=== PATIENT | female | born 1950 | race Caucasian/White ===

== ENCOUNTER 2017-11-11 12:57 | Inpatient (IN) | payer BC, OTHER ==
[~2017-11-11] VITALS: Ht 152.4 cm; Wt 92.0 kg
[~2017-11-11 12:57] MED LIST: ASPI325T39 PO; CHOL100010 PO; CINN500T PO; CLX40 PO; FURO-85 PO; GLC/500 PO; INSUINJ4 SC; LEVAAER2 INH; LISI-729 PO; MELATAB2 PO; MULT-1018 PO; MULT-845 PO; OMEG5CAP PO; ORLI60CA2 PO; PSYL48.59 PO; REPA2TAB12 PO; SIMV20TA2 PO; SNG10 PO; SNQ/25 PO; SYMIN160 INH; TRAZ100T29 PO
[2017-11-11] MEDS ORDERED: LIRA18IN INJ (13:44)
--- NOTE | 2017-11-11 14:30 | DIAGNOSTIC IMAGING REPORT ---
ADDENDUM Subtle cortical lucency involving the lateral aspect of the proximal diaphyseal right femur seen only on the AP view suggests acute nondisplaced fracture. This is better seen on comparison CT of same day. Electronically signed by: Andrew Carey M.D. 11/11/2017 5:57 PM Dictated Date/Time: 11/11/2017 5:56 PM ORIGINAL REPORT PELVIS 1 OR 2 VIEW ROUTINE, R HIP UNILATERAL 2 VIEWS, R FEMUR 2 VIEWS ROUTINE HISTORY: 67 years-old Female right hip/femur pain, fall, eval fx acute pelvis, right hip and right femur pain status post fall COMPARISON: Pelvis radiograph 04/29/2014 TECHNIQUE: AP view of the pelvis with 2 views the right hip and 2 views of the right femur FINDINGS: PELVIS: Bilateral hip arthroplasties are present without evidence of hardware fracture or complication. The bones appear moderately demineralized. Vascular calcifications of the pelvis suggest phleboliths. Degenerative changes are seen within the lower lumbar spine. No acute fracture or subluxation identified. RIGHT HIP: Chronic cortical thickening is noted involving the proximal right femur. 3 mm lucency is noted lateral to the proximal aspect of the right femoral stem seen on the frontal view which appears new from prior study. No acute fracture or subluxation. RIGHT FEMUR: No acute fracture or subluxation. Right knee arthroplasty in satisfactory alignment. IMPRESSION: 1. No acute fracture or subluxation. 2. Bilateral hip and right knee arthroplasties. 3. 3 mm lucency lateral to the proximal right femoral stem is suspicious for possible hardware loosening, new from prior study. 4. Moderate bone demineralization. The above report was generated using voice recognition software. It may contain grammatical, syntax or spelling errors. Electronically signed by: Andrew Carey M.D. 11/11/2017 2:29 PM Dictated Date/Time: 11/11/2017 2:23 PM
--- NOTE | 2017-11-11 15:28 | EMERGENCY ROOM VISIT NOTE ---
History First contact with patient: 13:18 Chief Complaint: HIP PAIN Stated Complaint: FELL LAST NIGHT/HIP PAIN History of Present Illness The patient is a 67 year old female who presents to the Emergency Room with complaints of right hip and thigh pain after falling last night. She states she was walking quickly down her hallway and tripped, falling onto her right side. She denies hitting her head or loss of consciousness, denies any other injuries from the fall. She has been using her walker to get around because she is unable to bear weight on the leg due to severe pain. She reports having right hip surgery approximately [address] Zuñiga, states it was broken in several pieces and "they had to piece it back together with hardware. " She denies any numbness or tingling, denies headaches, chest pain, shortness of breath, abdominal pain, back pain, dysuria or hematuria, or rash. Review of Systems A complete 10 point review of systems was reviewed with the patient with pertinent positives and negatives as per history of present illness. All else were negative. Past Medical/Surgical History Medical Problems: (1) Fall (2) Right hip pain Social History Smoking Status: Never Smoker Current/Historical Medications Scheduled Albuterol Sulf (Proventil 0.083% 2.5MG/3ML), 2.5 MG INH QID Budesonide/Formoterol Fumarate (Symbicort 160/4.5 Inhaler ), 2 PUFFS INH BID Cinnamon (Cinnamon), 1 TAB PO BID Citalopram (Citalopram Hydrobromide), 1 TAB PO QAM Doxepin (Sinequan), 25 MG PO HS Furosemide (Lasix), 20 MG PO BID Hydralazine Hcl (Apresoline), 25 MG PO TID Insulin Glargine (Lantus Solostar Pen), 42 UNITS SC HS Liraglutide (Victoza), 3 ML INJ QAM Lisinopril (Zestril), 2.5 MG PO HS Melatonin (Melatonin Maximum Strengt), 10 MG PO HS Montelukast (Singulair *), 10 MG PO HS Multiple Vitamins W/ Minerals (Centrum Silver Adult 50+), 1 TAB PO QAM Multiple Vitamins W/ Minerals (Hair Skin and Nails Formu), 1 TAB PO BID [place]-3 Fatty Acids (Fish Oil 1200 mg), 1 CAP PO QAM Orlistat (Kasi), 60 MG PO BID Simvastatin (Zocor), 20 MG PO HS Trazodone Hcl (Trazodone), 100 MG PO HS Scheduled PRN Hydroxyzine HCl (Hydroxyzine HCl), 25 MG PO TID PRN for Itching Levalbuterol (Xopenex Hfa), 2 PUFFS INH HS PRN for BREATHING Tramadol (Ultram), 50 MG PO Q6 PRN for Pain Allergies Reviewed in chart. Physical Exam Vital Signs Date Time Temp Pulse Resp B/P (MAP) Pulse Ox O2 Delivery O2 Flow Rate FiO2 11/11/17 18:26 75 18 118/55 99 Room Air 11/11/17 16:16 83 18 127/53 97 Room Air 11/11/17 13:13 36.8 78 18 146/73 98 Room Air Physical Exam CONSTITUTIONAL: Pleasant and cooperative. No acute distress, but appears in pain during exam. Well appearing and well nourished. HEENT: Normocephalic, atraumatic. Pupils equal, round and reactive to light, EOMI. TMs normal. Pharynx normal. NECK: Supple, full active range of motion without discomfort. RESPIRATORY: Clear to auscultation bilaterally with no wheezing, crackles, rhonchi or stridor. Equal expansion bilaterally. CARDIOVASCULAR: Regular rate and rhythm with no murmurs, rubs or gallops. Normal peripheral perfusion. No edema. GASTROINTESTINAL: Soft, nontender, nondistended. No palpable masses or HSM. Bowel sounds present in all quadrants. MUSCULOSKELETAL: There is tenderness to palpation of the proximal lateral right thigh, as well as increased pain with flexion, internal and external rotation of the hip joint. No ecchymosis or swelling noted on exam. Active range of motion in the right leg is severely limited secondary to pain. There is no pain with range of motion of the right knee or ankle. INTEGUMENTARY: No rash or other significant dermatologic conditions noted. NEUROLOGIC: Alert and oriented X 4 with normal affect. No focal neurologic deficits noted. Normal strength and sensation in all 4 extremities Medical Decision & Procedures ER Provider Diagnostic Interpretation: PELVIS 1 OR 2 VIEW ROUTINE, R HIP UNILATERAL 2 VIEWS, R FEMUR 2 VIEWS ROUTINE HISTORY: 67 years-old Female right hip/femur pain, fall, eval fx acute pelvis, right hip and right femur pain status post fall COMPARISON: Pelvis radiograph 04/29/2014 TECHNIQUE: AP view of the pelvis with 2 views the right hip and 2 views of the right femur FINDINGS: PELVIS: Bilateral hip arthroplasties are present without evidence of hardware fracture or complication. The bones appear moderately demineralized. Vascular calcifications of the pelvis suggest phleboliths. Degenerative changes are seen within the lower lumbar spine. No acute fracture or subluxation identified. RIGHT HIP: Chronic cortical thickening is noted involving the proximal right femur. 3 mm lucency is noted lateral to the proximal aspect of the right femoral stem seen on the frontal view which appears new from prior study. No acute fracture or subluxation. RIGHT FEMUR: No acute fracture or subluxation. Right knee arthroplasty in satisfactory alignment. IMPRESSION: 1. No acute fracture or subluxation. 2. Bilateral hip and right knee arthroplasties. 3. 3 mm lucency lateral to the proximal right femoral stem is suspicious for possible hardware loosening, new from prior study. 4. Moderate bone demineralization. Laboratory Results 11/11/17 16:35 Red Blood Count 3.87, Mean Corpuscular Volume 85.0, Mean Corpuscular Hemoglobin 28.4, Mean Corpuscular Hemoglobin Concent 33.4, Mean Platelet Volume 8.8, Neutrophils (%) (Auto) 64.3, Lymphocytes (%) (Auto) 25.4, Monocytes (%) (Auto) 8.6, Eosinophils (%) (Auto) 1.4, Basophils (%) (Auto) 0.1, Neutrophils # (Auto) 7.11, Lymphocytes # (Auto) 2.80, Monocytes # (Auto) 0.95, Eosinophils # (Auto) 0.15, Basophils # (Auto) 0.01 11/11/17 16:35 Test 11/11/17 16:35 White Blood Count 11.04 K/uL (4.8-10.8) Red Blood Count 3.87 M/uL (4.2-5.4) Hemoglobin 11.0 g/dL (12.0-16.0) Hematocrit 32.9 % (37-47) Mean Corpuscular Volume 85.0 fL (80-100) Mean Corpuscular Hemoglobin 28.4 pg (25-34) Mean Corpuscular Hemoglobin Concent 33.4 g/dl (32-36) Platelet Count 268 K/uL (130-400) Mean Platelet Volume 8.8 fL (7.4-10.4) Neutrophils (%) (Auto) 64.3 % Lymphocytes (%) (Auto) 25.4 % Monocytes (%) (Auto) 8.6 % Eosinophils (%) (Auto) 1.4 % Basophils (%) (Auto) 0.1 % Neutrophils # (Auto) 7.11 K/uL (1.4-6.5) Lymphocytes # (Auto) 2.80 K/uL (1.2-3.4) Monocytes # (Auto) 0.95 K/uL (0.11-0.59) Eosinophils # (Auto) 0.15 K/uL (0-0.5) Basophils # (Auto) 0.01 K/uL (0-0.2) RDW Standard Deviation 44.2 fL (36.4-46.3) RDW Coefficient of Variation 14.3 % (11.5-14.5) Immature Granulocyte % (Auto) 0.2 % Immature Granulocyte # (Auto) 0.02 K/uL (0.00-0.02) Prothrombin Time 10.5 SECONDS (9.0-12.0) Prothromb Time International Ratio 1.0 (0.9-1.1) Activated Partial Thromboplast Time 28.0 SECONDS (21.0-31.0) Partial Thromboplastin Ratio 1.1 Anion Gap 10.0 mmol/L (3-11) Est Creatinine Clear Calc Drug Dose 33.6 ml/min Estimated GFR () 36.3 Estimated GFR (Non- 31.3 BUN/Creatinine Ratio 23.7 (10-20) Calcium Level 9.0 mg/dl (8.5-10.1) Medical Decision CC: Patient presenting with complaint of right hip/thigh pain after a fall Differential Diagnosis: Includes, but not limited to hip fracture/dislocation, femur fracture, hardware disruption, contusion, hematoma, among others. Medication Reconciliation: I attest that I have personally reviewed the patient' s current medication list. Initial vital signs review: I reviewed the patient's vital signs and interpret them as follows: T: Afebrile; BP: Hypertensive; HR: Within normal limits; RR : Within normal limits; Pulse Ox: Within normal limits on room air. Blood pressure screening: The patient was found to have an elevated blood pressure, this was felt to be situational due to pain. Summary: Patient was evaluated at bedside, history and physical exam performed. Patient is alert and oriented, no acute distress but appears uncomfortable throughout the exam, laying in the stretcher. There is point tenderness over the lateral right mid-proximal thigh to palpation. There is no limb shortening or abnormal rotation to suggest a hip dislocation on exam. Orders were placed at bedside for x-ray imaging of the pelvis, right hip, and right femur to evaluate for fracture/dislocation. The patient was offered something for pain, she declines anything at this time. The patient was discussed with Dr. Christianson, who agrees with my assessment and plan. X-ray imaging is read as no acute fracture by radiology, however on my read there appears to be a cortical disruption on the AP view that correlates with patient's area of tenderness on exam, concerning for a femur fracture. I spoke with Dr. Ritter, orthopedic surgery, who agrees with my concern for femur fracture on x-ray. He requested CT of the extremity for further evaluation. Hospitalist to be called for the admission, as this will most likely require surgery. Pre-op labs, CXR, and EKG also ordered. Patient reassessed multiple times throughout ED stay, she remains comfortable and declining pain medication. I updated her on all results. Patient stable at time of admission. Impression Primary Impression: Femur fracture, right Additional Impression: Fall Departure Information Dispostion Admitted as an inpatient Condition FAIR Prescriptions Tramadol (Ultram) 50 Mg Tab 50 MG PO Q6 Y for Pain, #30 TAB Prov: Junito Weir MD 11/11/17 Albuterol Sulf (PROVENTIL 0.083% 2.5MG/3ML) 2.5 Mg/3 Ml Nebu 2.5 MG INH QID for SOB/Wheezing, #1 EA Prov: Junito Weir MD 11/11/17 Hydroxyzine HCl (Hydroxyzine HCl) 25 Mg Tab 25 MG PO TID Y for Itching, #30 Prov: Junito Weir MD 11/11/17 Hydralazine Hcl (APRESOLINE) 25 Mg Tab 25 MG PO TID, #30 TAB Prov: Junito Weir MD 11/11/17 Referrals Elgin Curran III, M.D. (PCP) Patient Instructions My [facility] Problem Qualifiers Primary Impression: Femur fracture, right Encounter type: initial encounter Femur location: shaft Fracture type: closed Fracture morphology: other fracture Qualified Codes: S72.391A - Other fracture of shaft of right femur, initial encounter for closed fracture Additional Impression: Fall Encounter type: initial encounter Qualified Codes: W19.XXXA - Unspecified fall, initial encounter
[2017-11-11 16:50] LABS: BASO % 0.1 %; BASO ABS # 0.01 K/uL (0-0.2); EOS % 1.4 %; EOS ABS # 0.15 K/uL (0-0.5); HEMATOCRIT 32.9 % (37-47); IG# 0.02 K/uL (0.00-0.02); LYMPH % 25.4 %; MEAN CORPUSCULAR HEMOGLOBIN 28.4 pg (25-34); MEAN CORPUSCULAR HGB CONC 33.4 g/dl (32-36); MEAN PLATELET VOLUME 8.8 fL (7.4-10.4); MONO % 8.6 %; MONO ABS # 0.95 K/uL (0.11-0.59); NEUT % 64.3 %; NEUT ABS # 7.11 K/uL (1.4-6.5); PLATELET COUNT 268 K/uL (130-400); RED CELL DISTRIBUTION WIDTH CV 14.3 % (11.5-14.5); RED CELL DISTRIBUTION WIDTH SD 44.2 fL (36.4-46.3); WHITE BLOOD COUNT 11.04 K/uL (4.8-10.8)
--- NOTE | 2017-11-11 17:01 | DIAGNOSTIC IMAGING REPORT ---
CHEST ONE VIEW PORTABLE HISTORY: 67 years-old Female pre-op eval preoperative exam. No acute chest complaints COMPARISON: Chest radiographs 03/29/2017 TECHNIQUE: Portable AP view of the chest FINDINGS: Calcifications of the tracheobronchial tree again noted. Cardiac silhouette is again enlarged, unchanged. No pneumothorax, pleural effusion, focal airspace consolidation or overt pulmonary edema. Severe degenerative changes of the bilateral shoulders redemonstrated with probable multiple loose bodies of the left axillary recess measuring up to 5 mm. Cholecystectomy clips noted. Levoscoliosis of the lumbar spine partially imaged. IMPRESSION: No acute process. The above report was generated using voice recognition software. It may contain grammatical, syntax or spelling errors. Electronically signed by: Andrew Carey M.D. 11/11/2017 4:59 PM Dictated Date/Time: 11/11/2017 4:58 PM
[2017-11-11 17:06] LABS: CREATININE 1.69 mg/dl (0.60-1.20)
[2017-11-11] MEDS ORDERED: ALUMINUM/MAGNESIUM/SIMETH (MAALOX MAX) 30 ML UDC PO PRN (17:45)
[2017-11-11] MEDS ORDERED: ONDANSETRON INJ 2 MG/ML 2 ML VIAL IV PRN (17:45)
[2017-11-11] MEDS ORDERED: LEValbuterol HFA 15GM INHALER INH PRN (17:45)
[2017-11-11] MEDS ORDERED: ACETAMINOPHEN 325 MG TAB PO PRN (17:45)
[2017-11-11] MEDS ORDERED: APR25 PO (17:49)
[2017-11-11] MEDS ORDERED: TRAM-10 PO (17:49)
[2017-11-11] MEDS ORDERED: ATR25 PO (17:49)
[2017-11-11] MEDS ORDERED: ALBINS/ INH (17:49)
--- NOTE | 2017-11-11 17:57 | DIAGNOSTIC IMAGING REPORT ---
R LOWER EXTREMITY WITHOUT HISTORY: 67 years-old Female left femur, eval extent of fracture acute right leg pain status post fall. COMPARISON: Right femur and right hip radiographs of same day TECHNIQUE: Multiple axial CT images of the right thigh were obtained without contrast. A dose lowering technique was used consistent with the principals of GUANACO. FINDINGS: The bones appear to be mildly demineralized. Degenerative changes are seen within the pubic symphysis. No pelvic ring fracture identified. There is an acute obliquely oriented fracture involving the proximal metadiaphyseal portion of the right femur nicely seen on images 40 and 41 of series 300. There is 6 mm anterior displacement of the distal shaft. Fracture line extends proximally into the intertrochanteric region as seen on image 107 series 3 and extends distally approximately 10 cm. Mild periprosthetic lucencies seen laterally adjacent to the femoral stem, better seen on comparison radiographs. Right knee arthroplasty. No evidence of right knee and right hip malalignment. Mild subcutaneous edema about the right thigh. No large intramuscular hematoma. Peripheral vascular disease. No acute intrapelvic abnormality identified. IMPRESSION: 1. Acute minimally displaced oblique fracture involves the proximal metadiaphyseal femur. Fracture extends from the intratrochanteric region extending distally approximately 10 cm. 2. Moderate bone demineralization without additional acute fracture or subluxation. 2. No evidence of right hip dislocation. 3. Right knee arthroplasty without malalignment. 4. Mild soft tissue swelling about the right thigh. No large intramuscular hematoma. The above report was generated using voice recognition software. It may contain grammatical, syntax or spelling errors. Electronically signed by: Andrew Carey M.D. 11/11/2017 5:55 PM Dictated Date/Time: 11/11/2017 5:46 PM
[2017-11-11] MEDS ORDERED: TRAMADOL HCL 50 MG TAB PO PRN (18:00)
[2017-11-11] MEDS ORDERED: hydrOXYzine HCL 25 MG TAB PO PRN (18:00)
--- NOTE | 2017-11-11 18:29 | EMERGENCY ROOM VISIT NOTE ---
ED Visit Note First contact with patient: 13:18 I have personally evaluated and examined this patient. I agree with assessment and plan of Andra Reyes NP. Right thigh pain s/p fall and imaging concerning for fracture of periprosthetic cortical bone.
--- NOTE | 2017-11-11 18:34 | Orthopedic Consultation ---
Orthopedic Consultation Date of Consultation: Nov 11, 2017. Attending Physician: Reason for Consultation: Right hip and thigh pain. History of Present Illness Ms Cardenas is a 67-year-old female who has a previous history of a right hip implant to now has right hip and thigh pain after ground-level fall last night. She is unsure exactly what happened, but thinks that she "tripped over her own feet". She denies any loss of consciousness or syncope. She fell directly onto her right hip. She did not feel a pop or crack, but did have immediate pain and inability to bear weight. She has been unable to put any weight on her right leg since the fall last night. Due to her persistent pain, she eventually presented to the emergency department today. She has a long history of joint replacements. She says that she only had 1 surgery on her right hip in the past. She says that she had a significant hip fracture, and had a hip hemiarthroplasty prosthesis placed for this by Dr. Zuñiga approximately 10 years ago. She denies any problems with this implant before her fall yesterday. She denies any pain in the hip or any problems with her incision, such as erythema or swelling. She has also had a right total knee arthroplasty by Dr. Wilkins many years ago. She had a left total hip arthroplasty by Dr. Chen approximately 4 years ago, and what sounds like a left proximal humerus fracture ORIF by Dr. Chen many years ago. Social History Smoking Status: Never Smoker Allergies Coded Allergies: Adhesives (Verified Allergy, Unknown, BLISTERS WITH SOME TAPE, 11/11/17) Penicillins (Verified Allergy, Unknown, redness,swelling, 11/11/17) Propoxyphene (Verified Adverse Reaction, Unknown, LIGHT HEADED AND DIZZY, NAUSEA, 11/11/17) Replaces DARVOCET-N 10 Home Medications Scheduled Albuterol Sulf (Proventil 0.083% 2.5MG/3ML), 2.5 MG INH QID Budesonide/Formoterol Fumarate (Symbicort 160/4.5 Inhaler ), 2 PUFFS INH BID Cinnamon (Cinnamon), 1 TAB PO BID Citalopram (Citalopram Hydrobromide), 1 TAB PO QAM Doxepin (Sinequan), 25 MG PO HS Furosemide (Lasix), 20 MG PO BID Hydralazine Hcl (Apresoline), 25 MG PO TID Insulin Glargine (Lantus Solostar Pen), 42 UNITS SC HS Liraglutide (Victoza), 3 ML INJ QAM Lisinopril (Zestril), 2.5 MG PO HS Melatonin (Melatonin Maximum Strengt), 10 MG PO HS Montelukast (Singulair *), 10 MG PO HS Multiple Vitamins W/ Minerals (Centrum Silver Adult 50+), 1 TAB PO QAM Multiple Vitamins W/ Minerals (Hair Skin and Nails Formu), 1 TAB PO BID [place]-3 Fatty Acids (Fish Oil 1200 mg), 1 CAP PO QAM Orlistat (Kasi), 60 MG PO BID Simvastatin (Zocor), 20 MG PO HS Trazodone Hcl (Trazodone), 100 MG PO HS Scheduled PRN Hydroxyzine HCl (Hydroxyzine HCl), 25 MG PO TID PRN for Itching Levalbuterol (Xopenex Hfa), 2 PUFFS INH HS PRN for BREATHING Tramadol (Ultram), 50 MG PO Q6 PRN for Pain Current Inpatient Medications Current Inpatient Medications Medications (Trade) Dose Ordered Sig/Elba Route Start Time Stop Time Status Last Admin Dose Admin Heparin Sodium (Porcine) (Heparin Sq 5000 Unit/0.5ml) 5,000 unit Q8H SQ 11/11/17 17:45 12/11/17 17:44 UNV Acetaminophen (Tylenol Tab) 650 mg Q4H PRN PO 11/11/17 17:45 12/11/17 17:44 UNV Al Hydrox/Mg Hydrox/Simethicone (Maalox Max Susp) 15 ml Q4H PRN PO 11/11/17 17:45 12/11/17 17:44 UNV Polyethylene (Miralax Powder Packet) 17 gm DAILY PRN PO 11/11/17 17:45 12/11/17 17:44 UNV Ondansetron HCl (Zofran Inj) 4 mg Q6H PRN IV 11/11/17 17:45 12/11/17 17:44 UNV Budesonide/ Formoterol Fumarate (Symbicort 160/ 4.5 Inh) 2 puffs BID INH 11/11/17 21:00 12/11/17 20:59 UNV Citalopram Hydrobromide (celeXA TAB) 40 mg QAM PO 11/12/17 09:00 12/12/17 08:59 UNV Doxepin HCl (Sinequan Cap) 25 mg HS PO 11/11/17 21:00 12/11/17 20:59 UNV Furosemide (Lasix Tab) 20 mg BID PO 11/11/17 21:00 12/11/17 20:59 UNV Insulin Glargine (Lantus Solostar Pen) 42 units HS SC 11/11/17 21:00 12/11/17 20:59 UNV Levalbuterol (Xopenex Hfa Inhaler) 2 puffs HS PRN INH 11/11/17 17:45 12/11/17 17:44 UNV Lisinopril (Zestril Tab) 2.5 mg HS PO 11/11/17 21:00 12/11/17 20:59 UNV Montelukast Sodium (Singulair Tab) 10 mg HS PO 11/11/17 21:00 12/11/17 20:59 UNV Simvastatin (Zocor Tab) 20 mg HS PO 11/11/17 21:00 12/11/17 20:59 UNV Trazodone HCl (Desyrel Tab) 100 mg HS PO 11/11/17 21:00 12/11/17 20:59 UNV Insulin Aspart (novoLOG ASPART) SLIDING SCALE G... ACHS SC 11/11/17 21:00 12/11/17 20:59 UNV Oxycodone/ Acetaminophen (Percocet 5-325mg Tab) 1 tab Q4H PRN PO 11/11/17 17:45 11/25/17 17:44 UNV Albuterol Sulfate (Ventolin 0.083% 2.5MG/3ML Neb) 2.5 mg QID INH 11/11/17 21:00 12/11/17 20:59 UNV Hydralazine HCl (Apresoline Tab) 25 mg TID PO 11/11/17 21:00 12/11/17 20:59 UNV Hydroxyzine HCl (Vistaril Tab) 25 mg TID PRN PO 11/11/17 18:00 12/11/17 17:59 UNV Multivitamins/ Minerals (Multivitamin W/ Minerals Tab) 1 tab QAM PO 11/12/17 09:00 12/12/17 08:59 UNV Tramadol HCl (Ultram Tab) 50 mg Q6 PRN PO 11/11/17 18:00 12/11/17 17:59 UNV Physical Exam Date Time Temp Pulse Resp B/P (MAP) Pulse Ox O2 Delivery O2 Flow Rate FiO2 11/11/17 16:16 83 18 127/53 97 Room Air 11/11/17 13:13 36.8 78 18 146/73 98 Room Air Extremity Exam: Right leg: No gross deformity by inspection. No skin erythema or swelling. She has a well-healed, extensile lateral hip incision without evidence of infection. She also has a anterior right total knee incision without evidence of infection. Skin is intact without any lacerations or abrasions over the hip. Range of motion and strength testing in the hip is limited due to pain. She has intact toe and ankle dorsiflexion and plantarflexion with 5 out of 5 strength. She has intact motor and sensory function in the tibial and peroneal nerve distribution. Foot is warm and well perfused. General Appearance: no apparent distress Head: normocephalic, atraumatic Skin: normal color, warm/dry Laboratory Results Last 24 Hours Test 11/11/17 16:35 White Blood Count 11.04 K/uL Red Blood Count 3.87 M/uL Hemoglobin 11.0 g/dL Hematocrit 32.9 % Mean Corpuscular Volume 85.0 fL Mean Corpuscular Hemoglobin 28.4 pg Mean Corpuscular Hemoglobin Concent 33.4 g/dl Platelet Count 268 K/uL Mean Platelet Volume 8.8 fL Neutrophils (%) (Auto) 64.3 % Lymphocytes (%) (Auto) 25.4 % Monocytes (%) (Auto) 8.6 % Eosinophils (%) (Auto) 1.4 % Basophils (%) (Auto) 0.1 % Neutrophils # (Auto) 7.11 K/uL Lymphocytes # (Auto) 2.80 K/uL Monocytes # (Auto) 0.95 K/uL Eosinophils # (Auto) 0.15 K/uL Basophils # (Auto) 0.01 K/uL RDW Standard Deviation 44.2 fL RDW Coefficient of Variation 14.3 % Immature Granulocyte % (Auto) 0.2 % Immature Granulocyte # (Auto) 0.02 K/uL Prothrombin Time 10.5 SECONDS Prothromb Time International Ratio 1.0 Activated Partial Thromboplast Time 28.0 SECONDS Partial Thromboplastin Ratio 1.1 Sodium Level 137 mmol/L Potassium Level 4.0 mmol/L Chloride Level 101 mmol/L Carbon Dioxide Level 26 mmol/L Anion Gap 10.0 mmol/L Blood Urea Nitrogen 40 mg/dl Creatinine 1.69 mg/dl Est Creatinine Clear Calc Drug Dose 33.6 ml/min Estimated GFR () 36.3 Estimated GFR (Non- 31.3 BUN/Creatinine Ratio 23.7 Random Glucose 97 mg/dl Calcium Level 9.0 mg/dl Radiology: Right hip and femur x-rays were reviewed. They show a long-stem, calcar- replacing bipolar hip hemiarthroplasty. There is a visible fracture line on the lateral cortex of the femur. There is some lucency around the stem proximally, but no obvious lucency around the distal stem or obvious extension of the fracture down towards or past the distal stem of the femoral implant. Also noted is a right total knee arthroplasty. CT scan of the right femur from hip to knee was also reviewed. They confirms that she does have an oblique periprosthetic fracture around the femoral stem. The fracture line appears to end approximately 9 cm proximal to the distal tip of the femoral stem. Assessment & Plan (1) Femur fracture, right Assessment & Plan: She has a right hip [place] B periprosthetic femur fracture in the setting of a long-stem calcar-replacing bipolar hip hemiarthroplasty. Based on her imaging so far, I cannot tell for sure whether the implant is stable. She will need surgical intervention for this, either an ORIF versus revision hip arthroplasty. I will discuss her case with the [facility] team, and they should be able to perform her surgery in the next day or 2 based on surgeon availability. We will place her nothing by mouth after midnight tonight in case she can go to OR tomorrow. Problem Qualifiers (1) Femur fracture, right: Encounter type: initial encounter Femur location: shaft Fracture type: closed Fracture morphology: oblique Fracture alignment: displaced Qualified Codes: S72.331A - Displaced oblique fracture of shaft of right femur , initial encounter for closed fracture
[2017-11-11 19:48] VITALS: BP 147/63; PULSE 75; TEMP 36.8; O2SAT 98; BMI 39.6
--- NOTE | 2017-11-11 20:35 | HISTORY & PHYSICAL EXAMINATION ---
DATE OF ADMISSION: 11/11/2017 CHIEF COMPLAINT: Status post fall and right hip pain. HISTORY OF PRESENT ILLNESS: A 67-year-old female with past medical history significant for diabetes, hyperlipidemia, chronic kidney disease stage III, hypertension, generalized arthritis, moderate persistent asthma, obesity, history of hip replacement, chronic rhinitis, status post fall last night. The patient says she was walking in the hallway hurrying up to go to her and she tripped and fell and she needed help to get up and after that she walked with a walker but having difficulty walking because of the pain, so she came to the ER. In the ER and there was questionable fracture of the right hip and also possible mild dislocation of the hardware, so we are called for admission. The patient, except for pain in the right thigh region, denies any other complaints. Denies any headaches, no blurred vision, no dizziness. She has some cough over the last 3 weeks. No sore throat, no difficulty swallowing. No earache. No chest pain, no shortness of breath. No nausea, no vomiting, no abdominal pain. Normal bowel and bladder movements. Appetite is okay. No blood in the stools. No blood in the urine. No burning micturition. Has chronic lower extremity edema. Resting comfortably and hemodynamically stable. No skin rash. ALLERGIES: ADHESIVES, PENICILLINS, PROPOXYPHENE. PAST MEDICAL HISTORY: As mentioned above. PAST SURGICAL HISTORY: Left total knee arthroplasty, right total knee arthroplasty, dilatation and curettage, cholecystectomy, shoulder surgery and right hip replacement surgery. MEDICATIONS: The patient is on Symbicort 2 puffs b.i.d., Xopenex 2 puffs every 4 hours p.r.n., Victoza , omega 3 Krill oil 1 capsule p.o. b.i.d., garcinia cambogia 1 tablet b.i.d., doxepin 25 mg p.o. at bedtime, Lantus 42 units at bedtime, insulin sliding scale, hydralazine 25 mg p.o. t.i.d., hydroxyzine 25 mg p.o. t.i.d. p.r.n. itching, albuterol nebulization every 6 hours p.r.n., Lasix 20 mg p.o. b.i.d., Singulair 10 mg p.o. at bedtime, trazodone 100 mg p.o. at bedtime, lisinopril 2.5 mg p.o. daily, simvastatin 20 mg p.o. at bedtime, tramadol 50 mg p.o. 4-6 hours p.r.n., Celexa 40 mg p.o. daily, vitamins 1 tablet p.o. daily, vitamin D 1000 units p.o. daily. FAMILY HISTORY: Significant for father had rheumatoid arthritis and of lung cancer at 66. Mother has hypertension, diabetes, and heart disorder. SOCIAL HISTORY: Never smoked. No alcohol use. No drug use. . REVIEW OF SYMPTOMS: As per HPI. Rest of review of systems negative. PHYSICAL EXAMINATION: GENERAL: The patient is obese, not in distress. VITAL SIGNS: Temperature 36.8, pulse 83, respiratory rate 18, blood pressure 127/53, oxygen 97% on room air. HEENT: No pallor, no icterus. Pupils equal, round, and reactive to light. NECK: No JVD, no neck masses, no carotid bruits. CARDIOVASCULAR: S1, S2 heard, regular rate and rhythm, no murmur, no gallop. RESPIRATORY SYSTEM: Clear to auscultation bilaterally. No wheezing, no crackles. ABDOMEN: Soft, bowel sounds present. Nontender. No distention. CENTRAL NERVOUS SYSTEM: Cranial nerves II-XII grossly intact. Nonfocal. EXTREMITIES: Lower extremity edema present. Tenderness in the right hip region. No bruising or ecchymosis seen. LABORATORY DATA: Sodium 137, potassium 4, chloride 101, bicarbonate 26, BUN 40, creatinine 1.6, serum glucose 97. Calcium 9. WBC 11, hemoglobin 11, hematocrit 32.9, platelets 268. PT 10.5, INR 1, aPTT 28. Pelvic x-ray, no acute fracture or subluxation, bilateral hip and knee arthroplasties. A 3 mm lucency lateral to the proximal right femoral stem is suspicious for possible hardware loosening, new from prior study. Chest x-ray: No acute process seen. ASSESSMENT AND PLAN: A 67-year-old female who presents with a fall and right hip pain. 1. Status post mechanical fall and right hip pain, questionable loosening of hardware in the right hip region and questionable fracture. We will follow the CT scan of the right hip, pain control. Consult orthopedics. Observation on medical floor. 2. Chronic kidney disease stage III. Baseline creatinine around 1.8, presented with creatinine 1.6. We will follow the labs. 3. History of diabetes. Continue Lantus and insulin sliding scale. Follow the HbA1c levels. 4. History of hyperlipidemia, on statin. 5. History of depression. Continue Celexa, doxepin. 6. History of asthma. Continue Symbicort, Xopenex and albuterol neb p.r.n. 7. History of hypertension. Continue hydralazine, Lasix, lisinopril. Monitor the blood pressure. 8. Deep venous thrombosis prophylaxis, SCDs and heparin subQ for now. To hold the heparin subQ if she need surgery. 9. Disposition: Observation, medical floor. PT and OT prior to discharge. Social Service to help with discharge planning. Level 1 full code. MTDD
[2017-11-11] MEDS ORDERED: GLUCOSE 10 TABS/TUBE PO PRN (20:45)
[2017-11-11] MEDS ORDERED: GLUCOSE 40% GEL 15 GM TUBE PO PRN (20:45)
[2017-11-11] MEDS ORDERED: DEXTROSE 50% 50 ML SYR IV PRN (20:45)
[2017-11-11] MEDS ORDERED: POLYETHYLENE (MIRALAX) 17 GM PACK PO PRN (20:45)
[2017-11-11] MEDS ORDERED: GLUCAGON FOR INJ 1 MG VIAL SQ PRN (20:45)
[2017-11-11] MEDS ORDERED: INSULIN GLARGINE SOLOSTAR 100 UNITS/ML 3 ML PEN SC SCH (21:00)
[2017-11-11] MEDS ORDERED: INSULIN ASPART 100 UNITS/ML 3 ML PEN SC SCH (21:00)
[2017-11-11] MEDS ORDERED: IV FLUIDS COMPLETED PRN (21:15)
[2017-11-11] MEDS: ALBUTEROL 0.083% NEBU SOLN 3 ML VIAL INH SCH (21:42)
[2017-11-11 21:43] VITALS: PULSE 83; O2SAT 98
[2017-11-11] MEDS ORDERED: HEPARIN SOD 5000 UNIT/0.5 ML CARP SQ SCH (22:00)
[2017-11-11] MEDS: MONTELUKAST SOD 10 MG TAB PO SCH (22:22)
[2017-11-11] MEDS: TRAZODONE HCL 100 MG TAB PO SCH (22:24)
[2017-11-11] MEDS: LISINOPRIL 2.5 MG TAB PO SCH (22:24)
[2017-11-11] MEDS: SIMVASTATIN 20 MG TAB PO SCH (22:24)
[2017-11-11] MEDS: DOXEPIN HCL 25 MG CAP PO SCH (22:24)
[2017-11-11] MEDS: FUROSEMIDE 20 MG TAB PO SCH (22:24)
[2017-11-11 22:52] VITALS: BP 122/65; PULSE 77; TEMP 37; O2SAT 92
[2017-11-11] MEDS ORDERED: INSULIN GLARGINE SOLOSTAR 100 UNITS/ML 3 ML PEN SC ONE (23:15)
[2017-11-11] MEDS ORDERED: NURSING VERBAL MED ORDER ONE (23:15)
[2017-11-11 23:50] VITALS: O2SAT 98
[2017-11-11] MEDS: BUDESONIDE/FORMOTEROL FUMARATE 160/4.5 60 PUFFS/INHALER INH SCH (23:55)
[2017-11-12] VITALS (7 sets, daily range): BP systolic 102–117; BP diastolic 59–65; PULSE 74–83; TEMP 36.5–37; O2SAT 91–100; BMI 39.6
[2017-11-12] MEDS ORDERED: LORAZEPAM 0.5 MG TAB PO ONE (01:00)
[2017-11-12] MEDS: INSULIN ASPART 100 UNITS/ML 3 ML PEN SC SCH ×4 (06:00→21:24)
[2017-11-12 06:30] LABS: BASO % 0.3 %; BASO ABS # 0.03 K/uL (0-0.2); EOS % 3.5 %; EOS ABS # 0.31 K/uL (0-0.5); HEMATOCRIT 30.9 % (37-47); HEMOGLOBIN 10.1 g/dL (12.0-16.0); IG# 0.02 K/uL (0.00-0.02); LYMPH % 33.3 %; LYMPH ABS # 2.98 K/uL (1.2-3.4); MEAN CELL VOLUME 85.4 fL (80-100); MEAN CORPUSCULAR HEMOGLOBIN 27.9 pg (25-34); MEAN CORPUSCULAR HGB CONC 32.7 g/dl (32-36); MEAN PLATELET VOLUME 8.9 fL (7.4-10.4); MONO % 9.8 %; MONO ABS # 0.88 K/uL (0.11-0.59); NEUT % 52.9 %; NEUT ABS # 4.73 K/uL (1.4-6.5); PLATELET COUNT 249 K/uL (130-400); RED CELL DISTRIBUTION WIDTH CV 14.3 % (11.5-14.5); RED CELL DISTRIBUTION WIDTH SD 44.5 fL (36.4-46.3); WHITE BLOOD COUNT 8.95 K/uL (4.8-10.8)
[2017-11-12 07:00] LABS: CALCIUM 8.4 mg/dl (8.5-10.1); CREATININE 1.66 mg/dl (0.60-1.20); POTASSIUM 3.7 mmol/L (3.5-5.1)
[2017-11-12 08:06] LABS: HEMOGLOBIN A1C 8.1 % (4.5-5.6)
[2017-11-12] MEDS: ALBUTEROL 0.083% NEBU SOLN 3 ML VIAL INH SCH ×4 (08:29→19:50)
[2017-11-12] MEDS: BUDESONIDE/FORMOTEROL FUMARATE 160/4.5 60 PUFFS/INHALER INH SCH ×2 (08:38→21:17)
[2017-11-12] MEDS: CEROVITE ADV FORMULA TAB PO SCH (08:39)
[2017-11-12] MEDS: CITALOPRAM 40 MG TAB PO SCH (08:39)
[2017-11-12] MEDS: FUROSEMIDE 20 MG TAB PO SCH ×2 (08:39→21:20)
--- NOTE | 2017-11-12 15:12 | Orthopedic Progress Note ---
Orthopedic Progress Note Date of Service Nov 12, 2017. Subjective Reports: feeling well, Denies: chest pain, SOB, nausea / vomiting, light headedness, calf pain Additional Notes: PATIENT IS DOING WELL. SHE IS COMFORTABLE FOR THE MOST PART. MOVEMENT IS PAINFUL. Objective calves soft nontender, N/V intact, hip located, capillary refill less than 2 sec., A&O x3, toes mobile Date Time Temp Pulse Resp B/P (MAP) Pulse Ox O2 Delivery O2 Flow Rate FiO2 11/12/17 14:56 36.5 74 18 102/64 (77) 100 Room Air 11/12/17 14:48 79 16 99 Room Air 11/12/17 14:19 111/65 (80) 11/12/17 11:10 74 16 97 Room Air 11/12/17 07:10 37.0 74 19 110/59 (76) 91 Room Air 11/12/17 07:10 83 16 98 Room Air 11/12/17 07:10 Room Air 11/11/17 23:50 98 Room Air 11/11/17 22:52 37.0 77 16 122/65 (84) 92 Room Air 11/11/17 21:43 83 16 98 Room Air 11/11/17 19:48 36.8 75 18 147/63 98 Room Air 11/11/17 18:26 75 18 118/55 99 Room Air 11/11/17 16:16 83 18 127/53 97 Room Air Laboratory Results 24 Hours: Test 11/11/17 16:35 11/12/17 05:44 White Blood Count 11.04 K/uL 8.95 K/uL Red Blood Count 3.87 M/uL 3.62 M/uL Hemoglobin 11.0 g/dL 10.1 g/dL Hematocrit 32.9 % 30.9 % Mean Corpuscular Volume 85.0 fL 85.4 fL Mean Corpuscular Hemoglobin 28.4 pg 27.9 pg Mean Corpuscular Hemoglobin Concent 33.4 g/dl 32.7 g/dl Platelet Count 268 K/uL 249 K/uL Mean Platelet Volume 8.8 fL 8.9 fL Neutrophils (%) (Auto) 64.3 % 52.9 % Lymphocytes (%) (Auto) 25.4 % 33.3 % Monocytes (%) (Auto) 8.6 % 9.8 % Eosinophils (%) (Auto) 1.4 % 3.5 % Basophils (%) (Auto) 0.1 % 0.3 % Neutrophils # (Auto) 7.11 K/uL 4.73 K/uL Lymphocytes # (Auto) 2.80 K/uL 2.98 K/uL Monocytes # (Auto) 0.95 K/uL 0.88 K/uL Eosinophils # (Auto) 0.15 K/uL 0.31 K/uL Basophils # (Auto) 0.01 K/uL 0.03 K/uL Prothromb Time International Ratio 1.0 Prothrombin Time 10.5 SECONDS Assessment & Plan Assessment: RIGHT TIFFANY-PROSTHETIC HIP FRACTURE Plan: XRAYS WERE REVIEWED BY DR. BOBBY. PATIENT CAN BE TREATED NON-OPERATIVELY. WILL BE TOE TOUCH WEIGHT BEARING WITH WALKER. PT/OT ORDERED- [facility] W WALKER WILL REQUIRE FOLLOW UP IN 1-2 WEEKS FOR SERIAL XRAYS. WILL FOLLOW ALONG. (1) Femur fracture, right
[2017-11-12] MEDS ORDERED: NURSING VERBAL MED ORDER ONE ×2 (15:45)
--- NOTE | 2017-11-12 18:24 | Progress Note ---
Subjective Date of Service: Nov 12, 2017. Subjective Pt evaluation today including: conversation w/ patient, physical exam, lab review, review of studies, review of inpatient medication list Saw/examined the patient in room 359 She is doing okay today pain controlled when not moving her R LE No other issues at this time Problem List Medical Problems: (1) Femur fracture, right Status: Acute Review of Systems Constitutional: No fever, No chills Respiratory: No cough, No sputum, No shortness of breath Cardiac: No chest pain Abdomen: No pain, No nausea, No vomiting, No diarrhea Medications Current Inpatient Medications Medications (Trade) Dose Ordered Sig/Elba Route Start Time Stop Time Status Last Admin Dose Admin Heparin Sodium (Porcine) (Heparin Sq 5000 Unit/0.5ml) 5,000 unit Q8H SQ 11/11/17 22:00 12/11/17 21:59 Future Hold 11/11/17 22:31 5,000 UNIT Acetaminophen (Tylenol Tab) 650 mg Q4H PRN PO 11/11/17 17:45 12/11/17 17:44 11/11/17 22:50 650 MG Al Hydrox/Mg Hydrox/Simethicone (Maalox Max Susp) 15 ml Q4H PRN PO 11/11/17 17:45 12/11/17 17:44 Polyethylene (Miralax Powder Packet) 17 gm DAILY PRN PO 11/11/17 20:45 12/11/17 20:44 Ondansetron HCl (Zofran Inj) 4 mg Q6H PRN IV 11/11/17 17:45 12/11/17 17:44 Budesonide/ Formoterol Fumarate (Symbicort 160/ 4.5 Inh) 2 puffs BID INH 11/11/17 21:00 12/11/17 20:59 11/12/17 08:38 2 PUFFS Citalopram Hydrobromide (celeXA TAB) 40 mg QAM PO 11/12/17 09:00 12/12/17 08:59 11/12/17 08:39 40 MG Doxepin HCl (Sinequan Cap) 25 mg HS PO 11/11/17 21:00 12/11/17 20:59 11/11/17 22:24 25 MG Furosemide (Lasix Tab) 20 mg BID PO 11/11/17 21:00 12/11/17 20:59 11/12/17 08:39 20 MG Insulin Glargine (Lantus Solostar Pen) 42 units HS SC 11/11/17 21:00 12/11/17 20:59 Future hold Levalbuterol (Xopenex Hfa Inhaler) 2 puffs HS PRN INH 11/11/17 17:45 12/11/17 17:44 11/12/17 01:10 2 PUFFS Lisinopril (Zestril Tab) 2.5 mg HS PO 11/11/17 21:00 12/11/17 20:59 11/11/17 22:24 2.5 MG Montelukast Sodium (Singulair Tab) 10 mg HS PO 11/11/17 21:00 12/11/17 20:59 11/11/17 22:22 10 MG Simvastatin (Zocor Tab) 20 mg HS PO 11/11/17 21:00 12/11/17 20:59 11/11/17 22:24 20 MG Trazodone HCl (Desyrel Tab) 100 mg HS PO 11/11/17 21:00 12/11/17 20:59 11/11/17 22:24 100 MG Oxycodone/ Acetaminophen (Percocet 5-325mg Tab) 1 tab Q4H PRN PO 11/11/17 17:45 11/25/17 17:44 Albuterol Sulfate (Ventolin 0.083% 2.5MG/3ML Neb) 2.5 mg QIDR INH 11/11/17 21:00 12/11/17 20:59 11/12/17 14:48 2.5 MG Hydralazine HCl (Apresoline Tab) 25 mg TID PO 11/11/17 21:00 12/11/17 20:59 11/12/17 14:19 25 MG Hydroxyzine HCl (Vistaril Tab) 25 mg TID PRN PO 11/11/17 18:00 12/11/17 17:59 Multivitamins/ Minerals (Multivitamin W/ Minerals Tab) 1 tab QAM PO 11/12/17 09:00 12/12/17 08:59 11/12/17 08:39 1 TAB Tramadol HCl (Ultram Tab) 50 mg Q6 PRN PO 11/11/17 18:00 12/11/17 17:59 Glucose (Glucose 40% Gel) 15-30 GRAMS 15 GRAMS... UD PRN PO 11/11/17 20:45 12/11/17 20:44 Glucose (Glucose Chew Tab) 4-8 Tablets 4 Tabl... UD PRN PO 11/11/17 20:45 12/11/17 20:44 Dextrose (Dextrose 50% 50ML Syringe) 25-50ML OF 50% DW IV FOR... UD PRN IV 11/11/17 20:45 12/11/17 20:44 Glucagon (Glucagon Inj) 1 mg UD PRN SQ 11/11/17 20:45 12/11/17 20:44 Miscellaneous (Iv Fluids Completed) 1 ea PRN PRN N/A 11/11/17 21:15 11/11/18 21:14 Insulin Aspart (novoLOG ASPART) SLIDING SCALE G... ACHS SC 11/12/17 17:15 12/12/17 17:14 Objective Vital Signs Date Time Temp Pulse Resp B/P (MAP) Pulse Ox O2 Delivery O2 Flow Rate FiO2 11/12/17 14:56 36.5 74 18 102/64 (77) 100 Room Air 11/12/17 14:48 79 16 99 Room Air 11/12/17 14:19 111/65 (80) 11/12/17 11:10 74 16 97 Room Air 11/12/17 07:10 37.0 74 19 110/59 (76) 91 Room Air 11/12/17 07:10 83 16 98 Room Air 11/12/17 07:10 Room Air 11/11/17 23:50 98 Room Air 11/11/17 22:52 37.0 77 16 122/65 (84) 92 Room Air 11/11/17 21:43 83 16 98 Room Air 11/11/17 19:48 36.8 75 18 147/63 98 Room Air 11/11/17 18:26 75 18 118/55 99 Room Air Physical Exam General Appearance: no apparent distress, + obese Respiratory/Chest: no respiratory distress, no accessory muscle use Cardiovascular: regular rate, rhythm, no edema, no murmur Extremities: normal inspection, no pedal edema, + pertinent finding (decreased and painful ROM of the R LE) Laboratory Results Last 24 Hours Test 11/11/17 19:27 11/12/17 05:44 11/12/17 05:56 11/12/17 11:56 Bedside Glucose 87 mg/dl 101 mg/dl 99 mg/dl White Blood Count 8.95 K/uL Red Blood Count 3.62 M/uL Hemoglobin 10.1 g/dL Hematocrit 30.9 % Mean Corpuscular Volume 85.4 fL Mean Corpuscular Hemoglobin 27.9 pg Mean Corpuscular Hemoglobin Concent 32.7 g/dl Platelet Count 249 K/uL Mean Platelet Volume 8.9 fL Neutrophils (%) (Auto) 52.9 % Lymphocytes (%) (Auto) 33.3 % Monocytes (%) (Auto) 9.8 % Eosinophils (%) (Auto) 3.5 % Basophils (%) (Auto) 0.3 % Neutrophils # (Auto) 4.73 K/uL Lymphocytes # (Auto) 2.98 K/uL Monocytes # (Auto) 0.88 K/uL Eosinophils # (Auto) 0.31 K/uL Basophils # (Auto) 0.03 K/uL RDW Standard Deviation 44.5 fL RDW Coefficient of Variation 14.3 % Immature Granulocyte % (Auto) 0.2 % Immature Granulocyte # (Auto) 0.02 K/uL Sodium Level 137 mmol/L Potassium Level 3.7 mmol/L Chloride Level 104 mmol/L Carbon Dioxide Level 27 mmol/L Anion Gap 6.0 mmol/L Blood Urea Nitrogen 36 mg/dl Creatinine 1.66 mg/dl Est Creatinine Clear Calc Drug Dose 34.2 ml/min Estimated GFR () 37.1 Estimated GFR (Non- 32.0 BUN/Creatinine Ratio 21.5 Random Glucose 93 mg/dl Estimated Average Glucose 186 mg/dl Hemoglobin A1c 8.1 % Calcium Level 8.4 mg/dl Magnesium Level 2.2 mg/dl Hepatitis C Antibody Screen NEG Test 11/12/17 16:57 Bedside Glucose 138 mg/dl Assessment and Plan Status post mechanical fall and right hip pain, Nondisplaced fracture Consult orthopedics. Observation on medical floor. 11/12 no surgical intervention plan for PT/OT, NWB status may need rehab Chronic kidney disease stage III. Baseline creatinine around 1.8, presented with creatinine 1.6. We will follow the labs. 11/12 close to baseline avoid nephrotoxic agents if able DM2 Continue Lantus and insulin sliding scale. Follow the HbA1c levels. 11/12 Ha1c = 8.1%; will need tighter control at home HTN blood pressure well controlled continue hydralazine, lisinopril, and diuretics Asthma no acute issues continue home inhalers DVT ppx SCDs FULL CODE
[2017-11-12] MEDS: DOXEPIN HCL 25 MG CAP PO SCH (21:20)
[2017-11-12] MEDS: SIMVASTATIN 20 MG TAB PO SCH (21:20)
[2017-11-12] MEDS: TRAZODONE HCL 100 MG TAB PO SCH (21:20)
[2017-11-12] MEDS: LISINOPRIL 2.5 MG TAB PO SCH (21:21)
[2017-11-12] MEDS: MONTELUKAST SOD 10 MG TAB PO SCH (21:21)
[2017-11-12] MEDS: OXYCODONE/ACETAMINOPHEN 5-325 TAB PO PRN (23:57)
[2017-11-13] VITALS (8 sets, daily range): BP systolic 62–113; BP diastolic 46–70; PULSE 70–86; TEMP 36.8–37.3; O2SAT 91–99
[2017-11-13] MEDS ORDERED: LORAZEPAM 0.5 MG TAB PO STA (00:03)
[2017-11-13] MEDS: ALBUTEROL 0.083% NEBU SOLN 3 ML VIAL INH SCH ×4 (07:08→20:32)
[2017-11-13] MEDS: INSULIN ASPART 100 UNITS/ML 3 ML PEN SC SCH ×4 (08:00→21:58)
[2017-11-13] MEDS: FUROSEMIDE 20 MG TAB PO SCH (08:28)
[2017-11-13] MEDS: CEROVITE ADV FORMULA TAB PO SCH (08:28)
[2017-11-13] MEDS: CITALOPRAM 40 MG TAB PO SCH (08:28)
[2017-11-13] MEDS: BUDESONIDE/FORMOTEROL FUMARATE 160/4.5 60 PUFFS/INHALER INH SCH ×2 (08:28→21:02)
[2017-11-13] MEDS: OXYCODONE/ACETAMINOPHEN 5-325 TAB PO PRN (08:29)
[2017-11-13 09:27] LABS: BASO % 0.2 %; BASO ABS # 0.02 K/uL (0-0.2); EOS % 0.8 %; HEMATOCRIT 31.4 % (37-47); HEMOGLOBIN 10.5 g/dL (12.0-16.0); IG# 0.03 K/uL (0.00-0.02); LYMPH % 12.9 %; LYMPH ABS # 1.63 K/uL (1.2-3.4); MEAN CELL VOLUME 85.8 fL (80-100); MEAN CORPUSCULAR HEMOGLOBIN 28.7 pg (25-34); MEAN CORPUSCULAR HGB CONC 33.4 g/dl (32-36); MONO % 9.2 %; MONO ABS # 1.16 K/uL (0.11-0.59); NEUT % 76.7 %; NEUT ABS # 9.73 K/uL (1.4-6.5); PLATELET COUNT 232 K/uL (130-400); RED CELL DISTRIBUTION WIDTH CV 14.6 % (11.5-14.5); RED CELL DISTRIBUTION WIDTH SD 45.8 fL (36.4-46.3); WHITE BLOOD COUNT 12.67 K/uL (4.8-10.8)
[2017-11-13 10:10] LABS: CALCIUM 8.5 mg/dl (8.5-10.1); CREATININE 2.09 mg/dl (0.60-1.20)
--- NOTE | 2017-11-13 13:53 | DIAGNOSTIC IMAGING REPORT ---
R FOOT MIN 3 VIEWS ROUTINE CLINICAL HISTORY: right foot pain pain COMPARISON: None. DISCUSSION: Generalized degenerative change. Osteopenia to osteoporosis. Moderate Osman volumes configuration to the first metatarsophalangeal complex. Small heel spur. Ossification Achilles tendon insertion. No evidence for fracture. Mild generalized soft tissue edema IMPRESSION: Generalized degenerative change and osteopenia/osteoporosis. Degenerative change first metatarsophalangeal joint consistent with a hallux valgus deformity and bunion formation. The above report was generated using voice recognition software. It may contain grammatical, syntax or spelling errors. Electronically signed by: Nitish Amanda M.D. 11/13/2017 1:52 PM Dictated Date/Time: 11/13/2017 1:51 PM
--- NOTE | 2017-11-13 14:52 | Orthopedic Progress Note ---
Orthopedic Progress Note Date of Service Nov 13, 2017. Subjective Reports: feeling well, Denies: chest pain, SOB, nausea / vomiting, light headedness, calf pain Additional Notes: COMPLAINING OF RIGHT FOOT PAIN TODAY, MOSTLY LATERAL, ALONG THE 5TH MET. SHE ATTEMPTED PT BUT COULDN'T DO MUCH DUE TO THE FOOT. Objective calves soft nontender, N/V intact, hip located, capillary refill less than 2 sec., A&O x3, toes mobile THIGH TENDER. RIGHT FOOT NO ERYTHEMA, ECCHYMOSIS. MINIMAL EDEMA. TENDER OVER ATF AND ALONG THE 5TH METATARSAL. ROM INTACT. NV INTACT. Date Time Temp Pulse Resp B/P (MAP) Pulse Ox O2 Delivery O2 Flow Rate FiO2 11/13/17 11:41 70 16 97 Room Air 11/13/17 07:35 36.8 81 20 113/46 (68) 91 Room Air 11/13/17 07:15 Room Air 11/13/17 07:09 78 16 95 Room Air 11/13/17 00:45 97 Room Air 11/12/17 22:57 36.8 83 18 117/63 (81) 92 Room Air 11/12/17 19:51 77 16 97 Room Air 11/12/17 16:30 Room Air 11/12/17 14:56 36.5 74 18 102/64 (77) 100 Room Air Laboratory Results 24 Hours: Test 11/13/17 09:08 White Blood Count 12.67 K/uL Red Blood Count 3.66 M/uL Hemoglobin 10.5 g/dL Hematocrit 31.4 % Mean Corpuscular Volume 85.8 fL Mean Corpuscular Hemoglobin 28.7 pg Mean Corpuscular Hemoglobin Concent 33.4 g/dl Platelet Count 232 K/uL Mean Platelet Volume 9.0 fL Neutrophils (%) (Auto) 76.7 % Lymphocytes (%) (Auto) 12.9 % Monocytes (%) (Auto) 9.2 % Eosinophils (%) (Auto) 0.8 % Basophils (%) (Auto) 0.2 % Neutrophils # (Auto) 9.73 K/uL Lymphocytes # (Auto) 1.63 K/uL Monocytes # (Auto) 1.16 K/uL Eosinophils # (Auto) 0.10 K/uL Basophils # (Auto) 0.02 K/uL Assessment & Plan Assessment: RIGHT TIFFANY-PROSTHETIC HIP FRACTURE RIGHT FOOT PAIN Plan: XRAYS WERE REVIEWED BY DR. BOBBY. PATIENT CAN BE TREATED NON-OPERATIVELY. WILL BE TOE TOUCH WEIGHT BEARING WITH WALKER. PT/OT ORDERED- [facility] W WALKER WILL REQUIRE FOLLOW UP IN 1-2 WEEKS FOR SERIAL XRAYS. XRAYS ORDERED OF THE RIGHT FOOT. NEGATIVE. CONTINUE PREVIOUS TX PLAN. (1) Femur fracture, right
--- NOTE | 2017-11-13 19:12 | Progress Note ---
Internal Med Progress Note Date of Service: Nov 13, 2017. Provider Documentation: SUBJECTIVE: Patient reports having right ankle pain OBJECTIVE: Exam: General- lying in bed, No acute distress Neck- trachea midline, No JVD Lungs- CTABL Heart- RRR Abdomen- soft, nondistended, + bowel sounds Extremities- no calf tenderness, no ankle bruising or swelling Neuro- awake and alert and oriented ASSESSMENT & PLAN: Status post mechanical fall and right hip pain, RIGHT TIFFANY-PROSTHETIC HIP FRACTURE RIGHT FOOT PAIN (X ray negative) Plan: As per orthopedics: no surgery for hip fracture, patient should be TOE TOUCH WEIGHT BEARING WITH WALKER. patient has been mostly bed bound during hospital stay awaiting PT and OT evaluation will require orthopedics follow up 1-2 WEEKS FOR SERIAL XRAYS. Chronic kidney disease stage III with VALENTÍN likley from Lasix and lack of oral intake. will hold Lasix for now DM2 the HbA1c levels 8.1%; will need tighter control at home Patient has been on Lantus and sliding scale insulin Was hypoglycemic in the AM, hyperglycemic during the day Pharmacy hyperglycemic consult requested HTN continue hydralazine, lisinopril, and diuretics Asthma continue home inhalers DVT ppx : SCDs Vital Signs: Date Time Temp Pulse Resp B/P (MAP) Pulse Ox O2 Delivery O2 Flow Rate FiO2 11/13/17 16:15 Room Air 11/13/17 15:55 37.3 79 20 109/70 (83) 99 Room Air 11/13/17 15:48 78 16 96 Room Air 11/13/17 11:41 70 16 97 Room Air 11/13/17 07:35 36.8 81 20 113/46 (68) 91 Room Air 11/13/17 07:15 Room Air 11/13/17 07:09 78 16 95 Room Air 11/13/17 00:45 97 Room Air 11/12/17 22:57 36.8 83 18 117/63 (81) 92 Room Air 11/12/17 19:51 77 16 97 Room Air Lab Results: Results Past 24 Hours Test 11/12/17 20:03 11/13/17 09:08 11/13/17 12:13 Range/Units Bedside Glucose 213 334 70-90 mg/dl White Blood Count 12.67 4.8-10.8 K/uL Red Blood Count 3.66 4.2-5.4 M/uL Hemoglobin 10.5 12.0-16.0 g/dL Hematocrit 31.4 37-47 % Mean Corpuscular Volume 85.8 80-100 fL Mean Corpuscular Hemoglobin 28.7 25-34 pg Mean Corpuscular Hemoglobin Concent 33.4 32-36 g/dl Platelet Count 232 130-400 K/uL Mean Platelet Volume 9.0 7.4-10.4 fL Neutrophils (%) (Auto) 76.7 % Lymphocytes (%) (Auto) 12.9 % Monocytes (%) (Auto) 9.2 % Eosinophils (%) (Auto) 0.8 % Basophils (%) (Auto) 0.2 % Neutrophils # (Auto) 9.73 1.4-6.5 K/uL Lymphocytes # (Auto) 1.63 1.2-3.4 K/uL Monocytes # (Auto) 1.16 0.11-0.59 K/uL Eosinophils # (Auto) 0.10 0-0.5 K/uL Basophils # (Auto) 0.02 0-0.2 K/uL RDW Standard Deviation 45.8 36.4-46.3 fL RDW Coefficient of Variation 14.6 11.5-14.5 % Immature Granulocyte % (Auto) 0.2 % Immature Granulocyte # (Auto) 0.03 0.00-0.02 K/uL Sodium Level 134 136-145 mmol/L Potassium Level 4.0 3.5-5.1 mmol/L Chloride Level 101 98-107 mmol/L Carbon Dioxide Level 22 21-32 mmol/L Anion Gap 10.0 3-11 mmol/L Blood Urea Nitrogen 43 7-18 mg/dl Creatinine 2.09 0.60-1.20 mg/dl Est Creatinine Clear Calc Drug Dose 27.2 ml/min Estimated GFR () 28.1 Estimated GFR (Non- 24.2 BUN/Creatinine Ratio 20.6 10-20 Random Glucose 227 70-99 mg/dl Calcium Level 8.5 8.5-10.1 mg/dl Magnesium Level 2.0 1.8-2.4 mg/dl
[2017-11-13] MEDS ORDERED: PHARMACY GLYCEMIC MGMT CONSULT PRN (19:48)
[2017-11-13] MEDS ORDERED: INSULIN GLARGINE SOLOSTAR 100 UNITS/ML 3 ML PEN SC SCH (21:00)
[2017-11-13] MEDS: DOXEPIN HCL 25 MG CAP PO SCH (21:04)
[2017-11-13] MEDS: LISINOPRIL 2.5 MG TAB PO SCH (21:04)
[2017-11-13] MEDS: TRAZODONE HCL 100 MG TAB PO SCH (21:05)
[2017-11-13] MEDS: SIMVASTATIN 20 MG TAB PO SCH (21:05)
[2017-11-13] MEDS: MONTELUKAST SOD 10 MG TAB PO SCH (21:05)
[2017-11-14] VITALS (7 sets, daily range): BP systolic 106–128; BP diastolic 51–75; PULSE 71–90; TEMP 36.8–37.3; O2SAT 90–98; Ht 152.4 cm; Wt 92.0 kg
[2017-11-14] MEDS: INSULIN ASPART 100 UNITS/ML 3 ML PEN SC SCH ×6 (04:00→22:22)
[2017-11-14] MEDS: ALBUTEROL 0.083% NEBU SOLN 3 ML VIAL INH SCH ×4 (07:10→20:03)
[2017-11-14] MEDS: CEROVITE ADV FORMULA TAB PO SCH (09:09)
[2017-11-14] MEDS: BUDESONIDE/FORMOTEROL FUMARATE 160/4.5 60 PUFFS/INHALER INH SCH ×2 (09:09→22:15)
[2017-11-14] MEDS: CITALOPRAM 40 MG TAB PO SCH (09:10)
[2017-11-14 09:13] LABS: BASO % 0.2 %; BASO ABS # 0.02 K/uL (0-0.2); EOS % 2.5 %; EOS ABS # 0.24 K/uL (0-0.5); HEMATOCRIT 29.4 % (37-47); HEMOGLOBIN 9.5 g/dL (12.0-16.0); IG# 0.03 K/uL (0.00-0.02); LYMPH % 22.6 %; MEAN CELL VOLUME 84.5 fL (80-100); MEAN CORPUSCULAR HEMOGLOBIN 27.3 pg (25-34); MEAN CORPUSCULAR HGB CONC 32.3 g/dl (32-36); MONO % 13.7 %; MONO ABS # 1.33 K/uL (0.11-0.59); NEUT % 60.7 %; NEUT ABS # 5.91 K/uL (1.4-6.5); PLATELET COUNT 232 K/uL (130-400); RED CELL DISTRIBUTION WIDTH CV 14.5 % (11.5-14.5); WHITE BLOOD COUNT 9.73 K/uL (4.8-10.8)
--- NOTE | 2017-11-14 09:31 | Pharmacy Progress Note ---
Glycemic Control Intl Consult Date of Service Nov 14, 2017. Scope Glycemic Pharmacist consulted by Dr Osullivan on 11/13/17 for glycemic control and to write orders per [facility] inpatient glycemic control protocol. Objective Weight (Kilograms): 92.000 Accuchecks BSG (last 24hrs): Test 11/13/17 12:13 11/13/17 16:58 11/13/17 20:43 11/14/17 00:23 Bedside Glucose 334 mg/dl (70-90) 255 mg/dl (70-90) 230 mg/dl (70-90) 69 mg/dl (70-90) Test 11/14/17 00:29 11/14/17 00:51 11/14/17 03:49 11/14/17 08:30 Bedside Glucose 63 mg/dl (70-90) 87 mg/dl (70-90) 106 mg/dl (70-90) Laboratory Data (last 24hrs) Test 11/14/17 08:30 White Blood Count 9.73 K/uL Red Blood Count 3.48 M/uL Hemoglobin 9.5 g/dL Hematocrit 29.4 % Mean Corpuscular Volume 84.5 fL Mean Corpuscular Hemoglobin 27.3 pg Mean Corpuscular Hemoglobin Concent 32.3 g/dl Platelet Count 232 K/uL Mean Platelet Volume 9.0 fL Neutrophils (%) (Auto) 60.7 % Lymphocytes (%) (Auto) 22.6 % Monocytes (%) (Auto) 13.7 % Eosinophils (%) (Auto) 2.5 % Basophils (%) (Auto) 0.2 % Neutrophils # (Auto) 5.91 K/uL Lymphocytes # (Auto) 2.20 K/uL Monocytes # (Auto) 1.33 K/uL Eosinophils # (Auto) 0.24 K/uL Basophils # (Auto) 0.02 K/uL HbA1c Test 11/12/17 05:44 Hemoglobin A1c 8.1 % (4.5-5.6) H Recent Pertinent Medications Outpatient Anti-diabetic Regimen: * Lantus 42 units SQ qHS * Victoza 1.2mg SQ qAM * A1c = 8.1% 11/12/17 Assessment & Plan ASSESSMENT: * Ms Cardenas is a 67yo diabetic female admitted s/p fall with femur fracture. This will be managed non-operatively. * BSGs have been labile since admission, ranging from 40 - 334 mg/dL. It appears as though patient is low in the morning and significantly hyperglycemic throughout the day. * While her A1c (8.1%) doesn't appear to be markedly elevated, it is likely "skewed" d/t an averaging of lows with highs. There is certainly room for improvement. * Lantus dose was reduced last evening, d/t hypoglycemia in the am. * For now, will work toward qAM Lantus dosing and will make some adjustments to Novolog parameters until BSGs stabilize. PLAN FOR INPATIENT GLYCEMIC CONTROL: * Basal insulin with LANTUS 32 units SQ daily * begin transition to AM dosing * Correctional Insulin with NOVOLOG per scale ACHS or Q6hrs while NPO * Goal Range: Low 110 mg/dL - High 140 mg/dL * Correction Factor: 25 mg/dL/unit * Nutritional / Prandial insulin per carb ratio of 1 unit per 9 grams CHO consumed DISCHARGE PLANNING: * Patient's current A1c indicates somewhat poorly controlled diabetes as an outpt. * Might consider adjusting Lantus dose on discharge and moving to AM dosing. * Patient might benefit from the addition of sliding scale correctional insulin. * Please note that the plan above was derived based on current level of insulin resistance and hospital stress. These recommendations are appropriate for inpatient admission only. Plan of care upon discharge will need to be reassessed to avoid potential outpatient hypo/hyperglycemia. Thank you.
[2017-11-14 09:45] LABS: CALCIUM 8.7 mg/dl (8.5-10.1); CREATININE 2.03 mg/dl (0.60-1.20); POTASSIUM 4.2 mmol/L (3.5-5.1)
--- NOTE | 2017-11-14 10:49 | Orthopedic Progress Note ---
Orthopedic Progress Note Date of Service Nov 14, 2017. Subjective Reports: feeling well, pain controlled w PO medications, Denies: complaints, chest pain, SOB, nausea / vomiting, light headedness, calf pain Objective calves soft nontender, N/V intact, hip located, capillary refill less than 2 sec., A&O x3, toes mobile medial ankle and foot pain. FROM with ankle and good strength. Date Time Temp Pulse Resp B/P (MAP) Pulse Ox O2 Delivery O2 Flow Rate FiO2 11/14/17 07:35 Room Air 11/14/17 07:10 71 16 96 Room Air 11/14/17 07:06 37.3 81 16 124/54 (77) 90 Room Air 11/14/17 01:04 Room Air 11/13/17 23:55 37.0 86 18 112/62 (79) 94 Room Air 11/13/17 20:33 71 16 96 Room Air 11/13/17 16:15 Room Air 11/13/17 15:55 37.3 79 20 109/70 (83) 99 Room Air 11/13/17 15:48 78 16 96 Room Air 11/13/17 11:41 70 16 97 Room Air Laboratory Results 24 Hours: Test 11/14/17 08:30 White Blood Count 9.73 K/uL Red Blood Count 3.48 M/uL Hemoglobin 9.5 g/dL Hematocrit 29.4 % Mean Corpuscular Volume 84.5 fL Mean Corpuscular Hemoglobin 27.3 pg Mean Corpuscular Hemoglobin Concent 32.3 g/dl Platelet Count 232 K/uL Mean Platelet Volume 9.0 fL Neutrophils (%) (Auto) 60.7 % Lymphocytes (%) (Auto) 22.6 % Monocytes (%) (Auto) 13.7 % Eosinophils (%) (Auto) 2.5 % Basophils (%) (Auto) 0.2 % Neutrophils # (Auto) 5.91 K/uL Lymphocytes # (Auto) 2.20 K/uL Monocytes # (Auto) 1.33 K/uL Eosinophils # (Auto) 0.24 K/uL Basophils # (Auto) 0.02 K/uL Assessment & Plan Assessment: RIGHT TIFFANY-PROSTHETIC HIP FRACTURE RIGHT FOOT PAIN, xrays neg likely sprain from the fall. Plan: PATIENT CAN BE TREATED NON-OPERATIVELY. WILL BE TOE TOUCH WEIGHT BEARING WITH WALKER. PT/OT - [facility] W WALKER WILL REQUIRE FOLLOW UP IN 1-2 WEEKS FOR SERIAL XRAYS. XRAYS ORDERED OF THE RIGHT FOOT. NEGATIVE. CONTINUE PREVIOUS TX PLAN. Ortho will sign off, please contact if any concerns, thank you. (1) Femur fracture, right
--- NOTE | 2017-11-14 10:57 | Consultant Recommendations ---
Precision Grinder External Recommendations Date of Service Nov 14, 2017. Precision Grinder External Recommendations Right periprosthetic femur fracture Right foot/ ankle sprain Toe touch weight bearing right lower extremity with walker. Ice/ Elevate right ankle/ foot area as needed (already toe touch weight bearing for hip), will likely need some sort of brace as weight bearing progresses as an outpatient. Follow up with Dr. Leyva/ [facility] 12-14 days post op for xrays, call for appt.
[2017-11-14] MEDS ORDERED: INSULIN GLARGINE SOLOSTAR 100 UNITS/ML 3 ML PEN SC ONE (14:15)
--- NOTE | 2017-11-14 18:43 | Progress Note ---
Internal Med Progress Note Date of Service: Nov 14, 2017. Provider Documentation: SUBJECTIVE: Patient reports able to do some physical therapy activities today OBJECTIVE: Exam: General- lying in bed, No acute distress Neck- trachea midline, No JVD Lungs- CTABL Heart- RRR Abdomen- soft, nondistended, + bowel sounds Extremities- no calf tenderness, no ankle bruising or swelling Neuro- awake and alert and oriented ASSESSMENT & PLAN: Status post mechanical fall and right hip pain, RIGHT TIFFANY-PROSTHETIC HIP FRACTURE RIGHT FOOT PAIN (X ray negative) Plan: As per orthopedics: no surgery for hip fracture, patient should be TOE TOUCH WEIGHT BEARING WITH WALKER. patient has been mostly bed bound during hospital stay will require orthopedics follow up 1-2 WEEKS FOR SERIAL XRAYS. Chronic kidney disease stage III with VALENTÍN likley from Lasix and lack of oral intake. will hold Lasix for now DM2 the HbA1c levels 8.1%; will need tighter control at home Patient has been on Lantus and sliding scale insulin Has had hypoglycemic and hyperglycemic episodes Pharmacy hyperglycemic consult following patient HTN continue hydralazine, lisinopril, and diuretics Asthma continue home inhalers DVT ppx : SCDs Disposition: Pt had PT/OT evals completed this morning and pending authorization for physical therapy facility Vital Signs: Date Time Temp Pulse Resp B/P (MAP) Pulse Ox O2 Delivery O2 Flow Rate FiO2 11/14/17 16:35 Room Air 11/14/17 15:13 36.8 86 18 106/51 (69) 92 Room Air 11/14/17 15:09 77 16 96 Room Air 11/14/17 11:52 75 16 98 Room Air 11/14/17 07:35 Room Air 11/14/17 07:10 71 16 96 Room Air 11/14/17 07:06 37.3 81 16 124/54 (77) 90 Room Air 11/14/17 01:04 Room Air 11/13/17 23:55 37.0 86 18 112/62 (79) 94 Room Air 11/13/17 20:33 71 16 96 Room Air Lab Results: Results Past 24 Hours Test 11/13/17 20:43 11/14/17 00:23 11/14/17 00:29 11/14/17 00:51 Range/Units Bedside Glucose 230 69 63 87 70-90 mg/dl Test 11/14/17 03:49 11/14/17 08:30 11/14/17 12:31 Range/Units Bedside Glucose 106 240 70-90 mg/dl White Blood Count 9.73 4.8-10.8 K/uL Red Blood Count 3.48 4.2-5.4 M/uL Hemoglobin 9.5 12.0-16.0 g/dL Hematocrit 29.4 37-47 % Mean Corpuscular Volume 84.5 80-100 fL Mean Corpuscular Hemoglobin 27.3 25-34 pg Mean Corpuscular Hemoglobin Concent 32.3 32-36 g/dl Platelet Count 232 130-400 K/uL Mean Platelet Volume 9.0 7.4-10.4 fL Neutrophils (%) (Auto) 60.7 % Lymphocytes (%) (Auto) 22.6 % Monocytes (%) (Auto) 13.7 % Eosinophils (%) (Auto) 2.5 % Basophils (%) (Auto) 0.2 % Neutrophils # (Auto) 5.91 1.4-6.5 K/uL Lymphocytes # (Auto) 2.20 1.2-3.4 K/uL Monocytes # (Auto) 1.33 0.11-0.59 K/uL Eosinophils # (Auto) 0.24 0-0.5 K/uL Basophils # (Auto) 0.02 0-0.2 K/uL RDW Standard Deviation 45.0 36.4-46.3 fL RDW Coefficient of Variation 14.5 11.5-14.5 % Immature Granulocyte % (Auto) 0.3 % Immature Granulocyte # (Auto) 0.03 0.00-0.02 K/uL Sodium Level 133 136-145 mmol/L Potassium Level 4.2 3.5-5.1 mmol/L Chloride Level 102 98-107 mmol/L Carbon Dioxide Level 23 21-32 mmol/L Anion Gap 8.0 3-11 mmol/L Blood Urea Nitrogen 39 7-18 mg/dl Creatinine 2.03 0.60-1.20 mg/dl Est Creatinine Clear Calc Drug Dose 28.0 ml/min Estimated GFR () 29.1 Estimated GFR (Non- 25.1 BUN/Creatinine Ratio 19.4 10-20 Random Glucose 100 70-99 mg/dl Calcium Level 8.7 8.5-10.1 mg/dl Magnesium Level 2.1 1.8-2.4 mg/dl
[2017-11-14] MEDS: SIMVASTATIN 20 MG TAB PO SCH (22:17)
[2017-11-14] MEDS: DOXEPIN HCL 25 MG CAP PO SCH (22:17)
[2017-11-14] MEDS: LISINOPRIL 2.5 MG TAB PO SCH (22:17)
[2017-11-14] MEDS: MONTELUKAST SOD 10 MG TAB PO SCH (22:17)
[2017-11-14] MEDS: TRAZODONE HCL 100 MG TAB PO SCH (22:18)
[2017-11-15] MEDS: ALBUTEROL 0.083% NEBU SOLN 3 ML VIAL INH SCH (07:15)
[2017-11-15 07:17] VITALS: PULSE 82; O2SAT 96
[2017-11-15 08:13] VITALS: BP 113/63; PULSE 75; TEMP 36.6; O2SAT 93
[2017-11-15] MEDS: CEROVITE ADV FORMULA TAB PO SCH (08:46)
[2017-11-15] MEDS: BUDESONIDE/FORMOTEROL FUMARATE 160/4.5 60 PUFFS/INHALER INH SCH ×2 (08:46→21:41)
[2017-11-15] MEDS: CITALOPRAM 40 MG TAB PO SCH (08:46)
[2017-11-15] MEDS: INSULIN ASPART 100 UNITS/ML 3 ML PEN SC SCH ×4 (08:59→21:44)
[2017-11-15] MEDS: INSULIN GLARGINE SOLOSTAR 100 UNITS/ML 3 ML PEN SC SCH (09:00)
[2017-11-15] MEDS: ALBUTEROL HFA 8 GM INHALER INH SCH ×3 (12:59→21:40)
--- NOTE | 2017-11-15 14:05 | Pharmacy Progress Note ---
Pharmacy Glycemic Short Note 2 Date of Service Nov 15, 2017. Outpatient Anti-diabetic Regimen: * Lantus 42 units SQ qHS * Victoza 1.2mg SQ qAM * A1c = 8.1% 11/12/17 ASSESSMENT: 11/15/17: * Patient has now been converted to AM Lantus dosing and increased to nearly her home dose. * BSG was elevated at lunchtime again. Will consider adjusting Novolog parameters tomorrow if higher Lantus dose does not correct hyperglycemia. 11/14/17 * Ms Cardenas is a 67yo diabetic female admitted s/p fall with femur fracture. This will be managed non-operatively. * BSGs have been labile since admission, ranging from 40 - 334 mg/dL. It appears as though patient is low in the morning and significantly hyperglycemic throughout the day. * While her A1c (8.1%) doesn't appear to be markedly elevated, it is likely "skewed" d/t an averaging of lows with highs. There is certainly room for improvement. * Lantus dose was reduced last evening, d/t hypoglycemia in the am. * For now, will work toward qAM Lantus dosing and will make some adjustments to Novolog parameters until BSGs stabilize. PLAN FOR INPATIENT GLYCEMIC CONTROL: * Basal insulin with LANTUS 40 units SQ qAM * Correctional Insulin with NOVOLOG per scale ACHS or Q6hrs while NPO * Goal Range: Low 110 mg/dL - High 140 mg/dL * Correction Factor: 25 mg/dL/unit * Nutritional / Prandial insulin per carb ratio of 1 unit per 9 grams CHO consumed DISCHARGE PLANNING: * Patient's current A1c indicates somewhat poorly controlled diabetes as an outpt. * Might consider adjusting Lantus dose on discharge and moving to AM dosing. * Patient might benefit from the addition of sliding scale correctional insulin. * Please note that the plan above was derived based on current level of insulin resistance and hospital stress. These recommendations are appropriate for inpatient admission only. Plan of care upon discharge will need to be reassessed to avoid potential outpatient hypo/hyperglycemia. Thank you.
[2017-11-15 15:53] VITALS: BP 126/68; PULSE 77; TEMP 36.8; O2SAT 98
--- NOTE | 2017-11-15 17:46 | Progress Note ---
Internal Med Progress Note Date of Service: Nov 15, 2017. Provider Documentation: SUBJECTIVE: Patient able to do some physical therapy activities today. Reports right ankle pain feels better OBJECTIVE: Exam: General- seen sitting up in chair, no acute distress Neck- trachea midline, No JVD Lungs- CTABL Heart- RRR Abdomen- soft, nondistended, + bowel sounds Extremities- no calf tenderness, no ankle bruising or swelling Neuro- awake and alert and oriented ASSESSMENT & PLAN: Status post mechanical fall and right hip pain, RIGHT TIFFANY-PROSTHETIC HIP FRACTURE RIGHT FOOT PAIN (X ray negative) Plan: As per orthopedics: no surgery for hip fracture, patient should be TOE TOUCH WEIGHT BEARING WITH WALKER. patient has been mostly bed bound during hospital stay will require orthopedics follow up 1-2 WEEKS FOR SERIAL XRAYS. Chronic kidney disease stage III with VALENTÍN likely from Lasix and lack of oral intake. will hold Lasix for now. Encourage oral intake of fluids DM2 the HbA1c levels 8.1%; will need tighter control at home Patient has been on Lantus and sliding scale insulin Has had hypoglycemic and hyperglycemic episodes during the hospital stay and pharmacy hyperglycemic consult following patient Not hypoglycemic today HTN continue hydralazine, lisinopril Asthma continue home inhalers DVT ppx : SCDs Disposition: Pt is approved to [facility]. [facility] has a bed tomorrow and can accept. Vital Signs: Date Time Temp Pulse Resp B/P (MAP) Pulse Ox O2 Delivery O2 Flow Rate FiO2 11/15/17 15:53 36.8 77 18 126/68 (87) 98 Room Air 11/15/17 08:13 36.6 75 16 113/63 (80) 93 Room Air 11/15/17 08:10 Room Air 11/15/17 07:17 82 16 96 Room Air 11/15/17 00:02 Nasal Cannula 11/14/17 22:34 37.2 90 18 128/75 (92) 93 Room Air 11/14/17 20:03 87 16 96 Room Air Lab Results: Results Past 24 Hours Test 11/14/17 20:39 11/15/17 00:05 11/15/17 05:09 11/15/17 08:27 Range/Units Bedside Glucose 158 205 161 208 70-90 mg/dl
[2017-11-15] MEDS: MONTELUKAST SOD 10 MG TAB PO SCH (21:42)
[2017-11-15] MEDS: DOXEPIN HCL 25 MG CAP PO SCH (21:43)
[2017-11-15] MEDS: LISINOPRIL 2.5 MG TAB PO SCH (21:43)
[2017-11-15] MEDS: TRAZODONE HCL 100 MG TAB PO SCH (21:43)
[2017-11-15] MEDS: SIMVASTATIN 20 MG TAB PO SCH (21:43)
[2017-11-15 22:28] VITALS: BP 115/69; PULSE 81; TEMP 36.7; O2SAT 95
[2017-11-16 07:36] VITALS: BP 124/70; PULSE 78; TEMP 36.9; O2SAT 93
[2017-11-16] MEDS: BUDESONIDE/FORMOTEROL FUMARATE 160/4.5 60 PUFFS/INHALER INH SCH (08:39)
[2017-11-16] MEDS: CEROVITE ADV FORMULA TAB PO SCH (08:40)
[2017-11-16] MEDS: CITALOPRAM 40 MG TAB PO SCH (08:40)
[2017-11-16] MEDS ORDERED: OXYC-57 PO (08:40)
[2017-11-16] MEDS: ALBUTEROL HFA 8 GM INHALER INH SCH ×2 (08:40→12:35)
[2017-11-16] MEDS ORDERED: ULT50X PO (08:40)
--- NOTE | 2017-11-16 08:44 | Progress Note ---
Internal Med Progress Note Date of Service: Nov 16, 2017. Provider Documentation: SUBJECTIVE: Patient denies new complaints. Reports minimal pain medication uses for right hip/right foot pain OBJECTIVE: Exam: General- lying in bed no acute distress Neck- trachea midline, No JVD Lungs- CTABL Heart- RRR Abdomen- soft, nondistended, + bowel sounds Extremities- no calf tenderness, +1 lower extremity edema Neuro- awake and alert and oriented ASSESSMENT & PLAN: Status post mechanical fall and right hip pain, RIGHT TIFFANY-PROSTHETIC HIP FRACTURE RIGHT FOOT PAIN (X ray negative) Plan: As per orthopedics: no surgery for hip fracture Toe touch weight bearing right lower extremity with walker. Ice/ Elevate right ankle/ foot area as needed (already toe touch weight bearing for hip), will likely need some sort of brace as weight bearing progresses as an outpatient. Follow up with Dr. Leyva/ [facility] 12-14 days post op for xrays, call for appt. Chronic kidney disease stage III with VALENTÍN likely from Lasix and lack of oral intake. Lasix to be resumed at physical rehabilitation as patient with minimally more lower extremity edema from immobility and reduced Lasix use as inpatient DM2 - the HbA1c levels 8.1% Patient has been on Lantus and sliding scale insulin and followed by pharmacy hypoglycemic control patient to continue insulin and home medication of Victoza on discharge to rehab center HTN continue hydralazine, lisinopril Asthma continue home inhalers Disposition: Pt is to be transfered to [facility] for physical rehabilitation Vital Signs: Date Time Temp Pulse Resp B/P (MAP) Pulse Ox O2 Delivery O2 Flow Rate FiO2 11/16/17 07:36 36.9 78 17 124/70 (88) 93 Room Air 11/15/17 23:56 Room Air 11/15/17 22:28 36.7 81 18 115/69 (84) 95 Room Air 11/15/17 15:53 36.8 77 18 126/68 (87) 98 Room Air 11/15/17 15:30 Room Air Lab Results: Results Past 24 Hours Test 11/15/17 11:59 11/15/17 16:54 11/15/17 20:55 11/16/17 06:19 Range/Units Bedside Glucose 299 193 196 137 70-90 mg/dl
[2017-11-16] MEDS: INSULIN GLARGINE SOLOSTAR 100 UNITS/ML 3 ML PEN SC SCH (08:45)
[2017-11-16] MEDS: INSULIN ASPART 100 UNITS/ML 3 ML PEN SC SCH ×2 (08:45→12:39)
--- NOTE | 2017-11-16 08:52 | Discharge Instructions ---
Discharge Instructions Date of Service Nov 16, 2017. Admission Reason for Admission: Fall; Right Hip Pain Discharge Discharge Diagnosis / Problem: RIGHT TIFFANY-PROSTHETIC HIP FRACTURE, Diabetes, CKD, HTN Discharge Goals Goal(s): Improve function Activity Recommendations Activity Limitations: per Instructions/Follow-up section Shower/Bathe: no limitations . Instructions / Follow-Up Instructions / Follow-Up Status post mechanical fall and right hip pain, RIGHT TIFFANY-PROSTHETIC HIP FRACTURE RIGHT FOOT PAIN (X ray negative) Plan: As per orthopedics: no surgery for hip fracture Toe touch weight bearing right lower extremity with walker. Ice/ Elevate right ankle/ foot area as needed (already toe touch weight bearing for hip), will likely need some sort of brace as weight bearing progresses as an outpatient. Follow up with Dr. Leyva/ [facility] 12-14 days post op for xrays, call [phone] for appt. Chronic kidney disease stage III with VALENTÍN likely from Lasix and lack of oral intake. Lasix to be resumed at physical rehabilitation as patient with minimally more lower extremity edema from immobility and reduced Lasix use as inpatient DM2 - the HbA1c levels 8.1% Patient has been on Lantus and sliding scale insulin and followed by pharmacy hypoglycemic control patient to continue insulin and home medication of Victoza on discharge to rehab center HTN continue hydralazine, lisinopril Asthma continue home inhalers Disposition: Pt is to be transfered to [facility] for physical rehabilitation Current Hospital Diet Patient's current hospital diet: Diabetes Type 2 Diet, AHA Diet (Heart Healthy) Discharge Diet Recommended Diet: AHA Diet (Heart Healthy) Pending Studies Studies pending at discharge: no Laboratory Results 11/14/17 08:30 Red Blood Count 3.48, Mean Corpuscular Volume 84.5, Mean Corpuscular Hemoglobin 27.3, Mean Corpuscular Hemoglobin Concent 32.3, Mean Platelet Volume 9.0, Neutrophils (%) (Auto) 60.7, Lymphocytes (%) (Auto) 22.6, Monocytes (%) (Auto) 13.7, Eosinophils (%) (Auto) 2.5, Basophils (%) (Auto) 0.2, Neutrophils # (Auto ) 5.91, Lymphocytes # (Auto) 2.20, Monocytes # (Auto) 1.33, Eosinophils # (Auto ) 0.24, Basophils # (Auto) 0.02 11/14/17 08:30 Test 11/11/17 16:35 11/12/17 05:44 11/14/17 08:30 11/16/17 06:19 Prothrombin Time 10.5 SECONDS (9.0-12.0) Prothromb Time International Ratio 1.0 (0.9-1.1) Activated Partial Thromboplast Time 28.0 SECONDS (21.0-31.0) Partial Thromboplastin Ratio 1.1 Estimated Average Glucose 186 mg/dl Hemoglobin A1c 8.1 % (4.5-5.6) Hepatitis C Antibody Screen NEG (NEG) White Blood Count 9.73 K/uL (4.8-10.8) Red Blood Count 3.48 M/uL (4.2-5.4) Hemoglobin 9.5 g/dL (12.0-16.0) Hematocrit 29.4 % (37-47) Mean Corpuscular Volume 84.5 fL (80-100) Mean Corpuscular Hemoglobin 27.3 pg (25-34) Mean Corpuscular Hemoglobin Concent 32.3 g/dl (32-36) Platelet Count 232 K/uL (130-400) Mean Platelet Volume 9.0 fL (7.4-10.4) Neutrophils (%) (Auto) 60.7 % Lymphocytes (%) (Auto) 22.6 % Monocytes (%) (Auto) 13.7 % Eosinophils (%) (Auto) 2.5 % Basophils (%) (Auto) 0.2 % Neutrophils # (Auto) 5.91 K/uL (1.4-6.5) Lymphocytes # (Auto) 2.20 K/uL (1.2-3.4) Monocytes # (Auto) 1.33 K/uL (0.11-0.59) Eosinophils # (Auto) 0.24 K/uL (0-0.5) Basophils # (Auto) 0.02 K/uL (0-0.2) RDW Standard Deviation 45.0 fL (36.4-46.3) RDW Coefficient of Variation 14.5 % (11.5-14.5) Immature Granulocyte % (Auto) 0.3 % Immature Granulocyte # (Auto) 0.03 K/uL (0.00-0.02) Anion Gap 8.0 mmol/L (3-11) Est Creatinine Clear Calc Drug Dose 28.0 ml/min Estimated GFR () 29.1 Estimated GFR (Non- 25.1 BUN/Creatinine Ratio 19.4 (10-20) Calcium Level 8.7 mg/dl (8.5-10.1) Magnesium Level 2.1 mg/dl (1.8-2.4) Bedside Glucose 137 mg/dl (70-90) Hemoglobin A1c Test 11/12/17 05:44 Range/Units Estimated Average Glucose 186 mg/dl Hemoglobin A1c 8.1 H 4.5-5.6 % Medical Emergencies . Who to Call and When: Medical Emergencies: If at any time you feel your situation is an emergency, please call 911 immediately. . Non-Emergent Contact Non-Emergency issues call your: Surgeon (orthopedic) Call Non-Emergent contact if: your pain is not controlled . . "Provider Documentation" section prepared by Vimal Osullivan. . Car Designer Recommendations Car Designer Recommendations: Right periprosthetic femur fracture Right foot/ ankle sprain Toe touch weight bearing right lower extremity with walker. Ice/ Elevate right ankle/ foot area as needed (already toe touch weight bearing for hip), will likely need some sort of brace as weight bearing progresses as an outpatient. Follow up with Dr. Leyva/ ULILIBETH 12-14 days post op for xrays, call for appt. VTE Core Measure Inpt VTE Proph given/why not?: Unfractionated heparin SQ
--- NOTE | 2017-11-16 08:54 | Discharge Summary ---
Discharge Summary Date of Service Nov 16, 2017. Discharge Summary Admission Date: Nov 11, 2017 at 18:01 Discharge Date: Nov 16, 2017 Discharge Disposition: Rehab ([facility] ) Principal Diagnosis: RIGHT TIFFANY-PROSTHETIC HIP FRACTURE, Diabetes, CKD, HTN Consultations: Orthopedics Medication Reconciliation New Medications: Oxycodone/Acetaminophen 5MG/325MG (Percocet 5MG/325MG) Tab 1 TAB PO Q4H PRN for Pain for 5 Days, #20 TAB PAIN Tramadol HCl (Tramadol HCl) 50 Mg Tab 50 MG PO Q6 PRN for Pain for 5 Days, #20 TAB Continued Medications: Albuterol Sulf (Proventil 0.083% 2.5MG/3ML) 2.5 Mg/3 Ml Nebu 2.5 MG INH QID for SOB/Wheezing, #1 EA Budesonide/Formoterol Fumarate (Symbicort 160/4.5 Inhaler ) Aero 2 PUFFS INH BID, INHALER USUALLY ONLY HS-OCC AM Cinnamon (Cinnamon) 500 Mg Tab 1 TAB PO BID Citalopram (Citalopram Hydrobromide) 40 Mg Tab 1 TAB PO QAM Doxepin (Sinequan) 25 Mg Cap 25 MG PO HS, CAP Furosemide (Lasix) 20 Mg Tab 20 MG PO BID, TAB Hydralazine Hcl (Apresoline) 25 Mg Tab 25 MG PO TID, #30 TAB Hydroxyzine HCl (Hydroxyzine HCl) 25 Mg Tab 25 MG PO TID PRN for Itching, #30 Insulin Glargine (Lantus Solostar Pen) 100 Unit/ Inj 42 UNITS SC HS Levalbuterol (Xopenex Hfa) Inh 2 PUFFS INH HS PRN for BREATHING Liraglutide (Victoza) 18 Mg/3 Ml Inj 3 ML INJ QAM Lisinopril (Zestril) 5 Mg Tab 2.5 MG PO HS, TAB Melatonin (Melatonin Maximum Strengt) 5 Mg Tab 10 MG PO HS for 30 Days, #30 TAB 1 Refill Montelukast (Singulair *) 10 Mg Tab 10 MG PO HS, 0 Refills Multiple Vitamins W/ Minerals (Centrum Silver Adult 50+) 1 Tab Tab 1 TAB PO QAM Multiple Vitamins W/ Minerals (Hair Skin and Nails Formu) 1 Tab Tab 1 TAB PO BID [place]-3 Fatty Acids (Fish Oil 1200 mg) 1 Cap Cap 1 CAP PO QAM Orlistat (Kasi) 60 Mg Cap 60 MG PO BID Simvastatin (Zocor) 20 Mg Tab 20 MG PO HS, 0 Refills Trazodone Hcl (Trazodone) 100 Mg Tab 100 MG PO HS, TAB Discontinued Medications: Tramadol (Ultram) 50 Mg Tab 50 MG PO Q6 PRN for Pain, #30 TAB Admission Information HPI (per Admitting provider): CHIEF COMPLAINT: Status post fall and right hip pain. HISTORY OF PRESENT ILLNESS: A 67-year-old female with past medical history significant for diabetes, hyperlipidemia, chronic kidney disease stage III, hypertension, generalized arthritis, moderate persistent asthma, obesity, history of hip replacement, chronic rhinitis, status post fall last night. The patient says she was walking in the hallway hurrying up to go to her and she tripped and fell and she needed help to get up and after that she walked with a walker but having difficulty walking because of the pain, so she came to the ER. In the ER and there was questionable fracture of the right hip and also possible mild dislocation of the hardware, so we are called for admission. The patient, except for pain in the right thigh region, denies any other complaints. Denies any headaches, no blurred vision, no dizziness. She has some cough over the last 3 weeks. No sore throat, no difficulty swallowing. No earache. No chest pain, no shortness of breath. No nausea, no vomiting, no abdominal pain. Normal bowel and bladder movements. Appetite is okay. No blood in the stools. No blood in the urine. No burning micturition. Has chronic lower extremity edema. Resting comfortably and hemodynamically stable. No skin rash. Physical Exam (per Admitting): PHYSICAL EXAMINATION: GENERAL: The patient is obese, not in distress. VITAL SIGNS: Temperature 36.8, pulse 83, respiratory rate 18, blood pressure 127/53, oxygen 97% on room air. HEENT: No pallor, no icterus. Pupils equal, round, and reactive to light. NECK: No JVD, no neck masses, no carotid bruits. CARDIOVASCULAR: S1, S2 heard, regular rate and rhythm, no murmur, no gallop. RESPIRATORY SYSTEM: Clear to auscultation bilaterally. No wheezing, no crackles. ABDOMEN: Soft, bowel sounds present. Nontender. No distention. CENTRAL NERVOUS SYSTEM: Cranial nerves II-XII grossly intact. Nonfocal. EXTREMITIES: Lower extremity edema present. Tenderness in the right hip region. No bruising or ecchymosis seen. Hospital Course Status post mechanical fall and right hip pain, RIGHT TIFFANY-PROSTHETIC HIP FRACTURE RIGHT FOOT PAIN (X ray negative) Plan: As per orthopedics: no surgery for hip fracture Toe touch weight bearing right lower extremity with walker. Ice/ Elevate right ankle/ foot area as needed (already toe touch weight bearing for hip), will likely need some sort of brace as weight bearing progresses as an outpatient. Follow up with Dr. Leyva/ [facility] 12-14 days post op for xrays, call for appt. Chronic kidney disease stage III with VALENTÍN likely from Lasix and lack of oral intake. Lasix to be resumed at physical rehabilitation as patient with minimally more lower extremity edema from immobility and reduced Lasix use as inpatient DM2 - the HbA1c levels 8.1% Patient has been on Lantus and sliding scale insulin and followed by pharmacy hypoglycemic control patient to continue insulin and home medication of Victoza on discharge to rehab center HTN continue hydralazine, lisinopril Asthma continue home inhalers Disposition: Pt is to be transfered to [facility] for physical rehabilitation Total time spent on discharge = 60 minutes This includes examination of the patient, discharge planning, medication reconciliation, and communication with other providers. Discharge Instructions see above
[2017-11-16] MEDS ORDERED: FUROSEMIDE 20 MG TAB PO ONE (09:15)
[2017-11-16 12:43] VITALS: BP 124/70; PULSE 78; TEMP 36.9; O2SAT 93
== END 2017-11-16 13:32 | DRG 560 ==
LOC: C.EDB 13:00 → C.MSW 18:01 → EDBEDREQ 18:03 → EDBEDREQSVC 18:03 → ENRESERV 18:14
PROVIDERS: ADMIT Family Medicine; ATTEND Hospitalist
DX: M97.01XA Periprosthetic fracture around internal prosthetic right hip joint, initial encounter (principal); N17.9 Acute kidney failure, unspecified; W19.XXXA Unspecified fall, initial encounter; Z96.653 Presence of artificial knee joint, bilateral; Z96.641 Presence of right artificial hip joint; Z82.49 Family history of ischemic heart disease and other diseases of the circulatory system; N18.3 Chronic kidney disease, stage 3 (moderate); E11.9 Type 2 diabetes mellitus without complications; E78.5 Hyperlipidemia, unspecified; F32.9 Major depressive disorder, single episode, unspecified; J45.909 Unspecified asthma, uncomplicated; I12.9 Hypertensive chronic kidney disease with stage 1 through stage 4 chronic kidney disease, or unspecified chronic kidney disease; Z79.4 Long term (current) use of insulin

== ENCOUNTER 2021-09-20 15:04 | Inpatient (IN) ==
--- NOTE | 2021-09-20 15:06 | Emergency Department Note ---
Impression & Plan Acute hypoxemic respiratory failure, Pneumonia due to COVID-19 virus, Hypocalcemia, Hypomagnesemia, Acute hyponatremia, VALENTÍN (acute kidney injury) ED Provider Note NAME: PARVIZ SINCLAIR AGE: 71 SEX: F : 1950 ARRIVES VIA: Ambulance INFORMANT: Patient, ED PROVIDER(S): Ron Nava MD Chief Complaint: Shortness of breath, cough HPI: Patient does present with the above symptoms noted ongoing for approximat patricio 2 weeks. The patient is unvaccinated for COVID-19 has not received his seasonal flu shot. The patient was seen at [facility] today referred here for further evaluation and treatment via ambulance due to concern for hypoxemia. The patient does not wear oxygen at home. Patient is a non-smoker. No history of DVT or PE. No recent surgeries procedures traveling and sick contacts. Patient states that she has had a productive cough of clear sputum. Patient does not complain of any chest pains or abdominal pain. Patient does not had any nausea vomiting or diarrhea. Patient has had decreased taste. Patient has been taking [id number] medications and try to hydrate with liquids but is continued to not feel well. ROS: See HPI for pertinent positives and negatives. A total of 10 systems were reviewed and otherwise negative. Past medical history: See below Surgical history: See below Social history: See below Physical Exam: GENERAL: NAD, wearing glasses, wearing a mask, non-toxic. EYE EXAM: Normal conjunctiva. PERRL, no anisocoria and EOM's grossly intact w/o pain. NECK: Supple, no nuchal rigidity, no adenopathy, non-tender. No signs of meningismus. LUNGS: Bibasilar crackles noted. Normal chest wall mechanics. HEART: NSR, no MRG. ABDOMEN: Abdomen soft, non-tender, normo-active bowel sounds, no masses, no rebound or guarding. BACK: No CVA TTP. SKIN: No rashes and no bruising. UPPER EXTREMITIES: Upper extremities are grossly normal. LOWER EXTREMITIES: Grossly normal, trace symmetric pretibial edema without calf pain. Negative Homans' sign bilaterally. NEURO EXAM: A&O x3, cranial nerves II-XII grossly intact, normal speech, moves all 4 extremities on command w/o issue. Differential diagnoses: Reactive airway disease, pneumonia, pneumothorax, COPD, CHF, infections, cardiac ischemia, pulmonary embolism, musculoskeletal, gastrointestinal, as well as other pathologies. Course: Patient was seen and evaluated the bedside. Full history physical exam was performed. EKG interpreted by me Sinus with first-degree AV block, rate of 88, prolonged FL, normal axis, no obvious ST changes. No significant change from comparison EKG November 11, 2017 Imaging Studies: See Below Cardiac monitoring: An order was placed for continuous cardiac monitoring. The monitor shows a rate of 82 with sinus rhythm. MDM: Patient was seen due to concern for hypoxia and shortness of breath. Blood work was obtained and the patient was treated symptomatically. The patient blood work did show concern for VALENTÍN the baseline creat around 2 and today's greater th an 4. Potassium is normal. The patient does have mild hyponatremia hypomagnesemia and hypocalcemia. Patient was ordered for replacement and did have urine and serum awesome's collected along with urine lecture lites. Patient did receive a second liter of IV fluids. I did reassess the patient shaina carson's respiratory status was improved and was no longer tachypneic. Patient did state that she felt improved on her supplemental nasal cannula. Patient was Covid positive and dexamethasone was ordered. I did speak with the on-call hospitalist Saritha Manuel PA-C and the patient was admitted by Dr. Feliciano. Critical Care: I have personally spent 46 minutes of critical care time in direct management of this patient. This includes bedside care, interpretation of diagnostic studies, and testing, discussion with consultants, patient, and family members, and other require inpatient management activities. This 46 minutes is in excess of all separately billable procedures. Past Med/Surg History Medical History Anxiety CKD (chronic kidney disease) stage 4, GFR 15-29 ml/min Dyslipidemia Fall Femur fracture, right History of heart failure HTN (hypertension) Moderate persistent asthma Type 2 diabetes mellitus insulin-requiring Surgical History History of arthroplasty of left knee History of arthroplasty of right knee History of cholecystectomy History of D&C History of shoulder surgery Family History Mother Diabetes Hypertension Grandmother Diabetes Cancer Father Cancer Brother Hypertension Social History Smoking Status: Never smoker Hx Alcohol Use: No Hx Substance Use: No Preferred Language: Kinyarwanda Saddle Maker Required: No Beliefs That Will Affect Care: None Current Living Situation: Spouse Other Information That Helps Us Care for You: No Feels Safe at Home: Yes Safety Concerns: Feels Safe At This Time Assistive Devices: Oxygen - Continuous Allergies Allergies Allergy/AdvReac Type Severity Reaction Status Date / Time adhesive Allergy Unknown BLISTERS Verified 09/20/21 16:14 WITH SOME TAPE Penicillins Allergy Unknown redness,swe Verified 09/20/21 16:14 lling propoxyphene AdvReac Unknown LIGHT Verified 09/20/21 16:14 HEADED AND DIZZY,NAUSEA Home Meds Home Medications Medication Instructions Recorded Confirmed albuterol sulfate 2.5 mg INHALATION Q6 PRN 09/20/21 09/20/21 aspirin 81 mg tablet,delayed 81 mg PO DAILY 09/20/21 09/20/21 release (Aspirin Low Dose) budesonide-formoterol HFA 160 2 puff INHALATION BID 09/20/21 09/20/21 mcg-4.5 mcg/actuation aerosol inhaler (Symbicort) cholecalciferol (vitamin D3) 25 25 mcg PO DAILY 09/20/21 09/20/21 mcg (1,000 unit) tablet (Vitamin D3) cinnamon bark 500 mg capsule 500 mg PO DAILY 09/20/21 09/20/21 (Cinnamon) citalopram 40 mg tablet 40 mg PO DAILY 09/20/21 09/20/21 doxepin 25 mg capsule 25 mg PO DAILY 09/20/21 09/20/21 furosemide 20 mg tablet 20 mg PO BID PRN 09/20/21 09/20/21 hydralazine 25 mg tablet 25 mg PO TID 09/20/21 09/20/21 insulin aspart U-100 100 unit/mL 4 unit SUBCUT UD 09/20/21 09/20/21 (3 mL) subcutaneous pen (Novolog Flexpen U-100 Insulin aspart) insulin glargine 100 unit/mL (3 42 unit SUBCUT HS 09/20/21 09/20/21 mL) subcutaneous pen (Lantus Solostar U-100 Insulin) levalbuterol tartrate 45 2 puff INHALATION BID 09/20/21 09/20/21 mcg/actuation aerosol inhaler liraglutide 0.6 mg/0.1 mL (18 mg/3 1.2 mg SUBCUT QAM 09/20/21 09/20/21 mL) subcutaneous pen injector (Victoza 2-Anup) lisinopril 10 mg tablet 10 mg PO DAILY 09/20/21 09/20/21 melatonin 10 mg tablet 10 mg PO HS 09/20/21 09/20/21 montelukast 10 mg tablet 10 mg PO HS 09/20/21 09/20/21 multivitamin 1 tab PO DAILY 09/20/21 09/20/21 simvastatin 20 mg tablet 20 mg PO HS 09/20/21 09/20/21 tramadol 50 mg tablet 50 mg PO Q6H PRN 09/20/21 09/20/21 trazodone 100 mg tablet 100 mg PO HS 09/20/21 09/20/21 Results & Data (ED) Vital Signs Vital Signs - 24 hr 09/20/21 15:14 09/20/21 15:20 09/20/21 15:30 Temperature Temperature Source Pulse Rate 87 83 Pulse Rate from SpO2 Sensor 87 Respiratory Rate 25 H 35 H Respiratory Effort / Characteristics Blood Pressure Blood Pressure Mean Blood Pressure Position Pulse Oximetry 99 75 L Oxygen Delivery Method Nasal Cannula Room Air Oxygen Flow Rate 2 Sepsis Recent Fever Within 48 Hours Sepsis New/Unexplained Change in Mental Status Sepsis Action Taken by Nursing 09/20/21 15:34 09/20/21 16:00 09/20/21 16:30 Temperature 37 C Temperature Source Oral Pulse Rate 94 H 80 85 Pulse Rate from SpO2 Sensor 84 86 Respiratory Rate 26 H 33 H 31 H Respiratory Effort / Characteristics Spontaneous Labored Short of Breath SOB on Exertion Blood Pressure 152/75 H 137/72 154/70 H Blood Pressure Mean 100 93 98 Blood Pressure Position Sitting Pulse Oximetry 75 L 92 93 Oxygen Delivery Method Room Air Nasal Cannula Nasal Cannula Oxygen Flow Rate 2 2 Sepsis Recent Fever Within 48 Hours No Sepsis New/Unexplained Change in Mental Status No Sepsis Action Taken by Nursing No Action Required 09/20/21 17:00 Temperature Temperature Source Pulse Rate 80 Pulse Rate from SpO2 Sensor 80 Respiratory Rate 23 Respiratory Effort / Characteristics Blood Pressure 140/69 Blood Pressure Mean 92 Blood Pressure Position Pulse Oximetry 95 Oxygen Delivery Method Nasal Cannula Oxygen Flow Rate 2 Sepsis Recent Fever Within 48 Hours Sepsis New/Unexplained Change in Mental Status Sepsis Action Taken by Prison Medications Current Medication List: was personally reviewed by me Laboratory Data Attestation: I reviewed the patient's lab results. Result diagrams: 09/21/21 07:20 09/21/21 07:20 Lab Results 09/20/21 09/20/21 09/20/21 Range/Units 15:24 15:24 15:24 WBC 8.44 (4.8-10.8) K/uL RBC 3.42 L (4.2-5.4) M/uL Hgb 9.6 L (12.0-16.0) g/dL Hct 28.7 L (37-47) % MCV 83.9 (80-100) fL MCH 28.1 (25-34) pg MCHC 33.4 (32-36) g/dL RDW Std Deviation 40.6 (36.4-46.3) fL RDW Coeff of Mile 13.4 (11.5-14.5) % Plt Count 277 (130-400) K/uL MPV 8.7 (7.4-10.4) fL Immature Gran % (Auto) 0.5 % Neut % (Auto) 79.3 % Lymph % (Auto) 9.0 % [place] % (Auto) 11.1 % Eos % (Auto) 0.0 % Baso % (Auto) 0.1 % Neut # (Auto) 6.69 H (1.4-6.5) K/uL Lymph # (Auto) 0.76 L (1.2-3.4) K/uL [place] # (Auto) 0.94 H (0.11-0.59) K/uL Eos # (Auto) 0.00 (0-0.5) K/uL Baso # (Auto) 0.01 (0-0.2) K/uL Immature Gran # (Auto) 0.04 H (0.00-0.02) K/uL Sodium 124 L (136-145) mmol/L Potassium 4.1 (3.5-5.1) mmol/L Chloride 94 L (98-107) mmol/L Carbon Dioxide 21 (21-32) mmol/L Anion Gap 9.0 (3-11) BUN 58 H (7-18) mg/dl Creatinine 4.41 H (0.6-1.2) mg/dl Est Cr Clr Drug Dosing Not Reportable Est GFR ( Amer) 11.1 ml/min Est GFR (Non-Af Amer) 9.6 ml/min BUN/Creatinine Ratio 13.2 (10-20) Glucose 263 H (70-99) mg/dl Osmolality (280-300) mOsm/kg Calcium 7.9 L (8.5-10.1) mg/dl Magnesium 1.7 L (1.8-2.4) mg/dl Total Bilirubin 0.4 (0.2-1) mg/dl AST 32 (15-37) U/L ALT 26 (12-78) U/L Alkaline Phosphatase 84 (45-117) U/L Troponin I < 0.015 (0-0.045) ng/ml Total Protein 6.9 (6.4-8.2) gm/dl Albumin 2.6 L (3.4-5.0) gm/dl Globulin 4.3 H (2.5-4.0) gm/dl Albumin/Globulin Ratio 0.6 L (0.9-2) Procalcitonin 0.31 (0-0.5) ng/ml SARS-CoV-2 (PCR) (Negative) Influ A Molecular Assay (Negative) Influ B Molecular Assay (Negative) 09/20/21 09/20/21 09/20/21 Range/Units 15:24 15:24 15:24 WBC (4.8-10.8) K/uL RBC (4.2-5.4) M/uL Hgb (12.0-16.0) g/dL Hct (37-47) % MCV (80-100) fL MCH (25-34) pg MCHC (32-36) g/dL RDW Std Deviation (36.4-46.3) fL RDW Coeff of Mile (11.5-14.5) % Plt Count (130-400) K/uL MPV (7.4-10.4) fL Immature Gran % (Auto) % Neut % (Auto) % Lymph % (Auto) % [place] % (Auto) % Eos % (Auto) % Baso % (Auto) % Neut # (Auto) (1.4-6.5) K/uL Lymph # (Auto) (1.2-3.4) K/uL [place] # (Auto) (0.11-0.59) K/uL Eos # (Auto) (0-0.5) K/uL Baso # (Auto) (0-0.2) K/uL Immature Gran # (Auto) (0.00-0.02) K/uL Sodium (136-145) mmol/L Potassium (3.5-5.1) mmol/L Chloride (98-107) mmol/L Carbon Dioxide (21-32) mmol/L Anion Gap (3-11) BUN (7-18) mg/dl Creatinine (0.6-1.2) mg/dl Est Cr Clr Drug Dosing Est GFR ( Amer) ml/min Est GFR (Non-Af Amer) ml/min BUN/Creatinine Ratio (10-20) Glucose (70-99) mg/dl Osmolality 289 (280-300) mOsm/kg Calcium (8.5-10.1) mg/dl Magnesium (1.8-2.4) mg/dl Total Bilirubin (0.2-1) mg/dl AST (15-37) U/L ALT (12-78) U/L Alkaline Phosphatase (45-117) U/L Troponin I (0-0.045) ng/ml Total Protein (6.4-8.2) gm/dl Albumin (3.4-5.0) gm/dl Globulin (2.5-4.0) gm/dl Albumin/Globulin Ratio (0.9-2) Procalcitonin (0-0.5) ng/ml SARS-CoV-2 (PCR) POSITIVE A* (Negative) Influ A Molecular Assay Negative (Negative) Influ B Molecular Assay Negative (Negative) Administered Medications Aspirin (Aspirin 81 Mg Ectab) 81 mg PO DAILY [facility] Stop: 10/21/21 08:59 Last Admin: 09/21/21 08:17 Dose: 81 mg Documented by: [id number] Citalopram Hydrobromide (Citalopram 40 Mg Tab) 40 mg PO DAILY [facility] Stop: 10/21/21 08:59 Last Admin: 09/21/21 08:18 Dose: 40 mg Documented by: [id number] Doxepin HCl (Doxepin Hcl 25 Mg Capsule) 25 mg PO DAILY [facility] Stop: 10/21/21 08:59 Last Admin: 09/21/21 08:17 Dose: 25 mg Documented by: [id number] Fluticasone/Vilanterol (Fluticasone/Vilanterol 200/25mcg 14 Puffs/Inhaler) 1 puffs INH DAILY [facility] Stop: 10/21/21 08:59 Last Admin: 09/21/21 08:17 Dose: 1 puffs Documented by: [id number] Heparin Sodium (Porcine) (Heparin Sod 5,000 Unit/0.5 Ml Vial) 7,500 units SQ Q8 [facility] Stop: 10/20/21 21:59 Last Admin: 09/21/21 06:35 Dose: 7,500 units Documented by: [id number] Admin: 09/20/21 22:22 Dose: 7,500 units Documented by: [id number] Hydralazine HCl (Hydralazine Hcl 25 Mg Tab) 25 mg PO TID [facility] Stop: 10/20/21 20:59 Last Admin: 09/21/21 08:18 Dose: 25 mg Documented by: [id number] Admin: 09/20/21 22:20 Dose: 25 mg Documented by: [id number] Insulin Aspart (Insulin Aspart 100 Units/Ml 3 Ml Pen) 0 units SC ACHS [facility] Stop: 10/20/21 20:59 Last Admin: 09/20/21 21:47 Dose: 10 units Documented by: [id number] Cosigned by: [id number] Insulin Glargine (Insulin Glargine Solostar 100 Units/Ml 3 Ml Pen) 20 units SC BID [facility] Stop: 10/20/21 20:59 Last Admin: 09/20/21 21:48 Dose: 20 units Documented by: [id number] Cosigned by: [id number] Melatonin (Melatonin 3 Mg Tab) 9 mg PO HSZ [facility] Stop: 10/20/21 21:59 Last Admin: 09/20/21 22:20 Dose: 9 mg Documented by: [id number] Montelukast Sodium (Montelukast Sodium 10 Mg Tablet) 10 mg PO HS [facility] Stop: 10/20/21 20:59 Last Admin: 09/20/21 22:20 Dose: 10 mg Documented by: [id number] Simvastatin (Simvastatin 20 Mg Tab) 20 mg PO HS [facility] Stop: 10/20/21 20:59 Last Admin: 09/20/21 22:21 Dose: 20 mg Documented by: [id number] Trazodone HCl (Trazodone Hcl 100 Mg Tab) 100 mg PO HS [facility] Stop: 10/20/21 20:59 Last Admin: 09/20/21 22:16 Dose: 100 mg Documented by: [id number] Discontinued Medications Calcium Carbonate (Calcium Carbonate 500 Mg Chewable Tab) 1,500 mg PO NOW STA Stop: 09/20/21 16:15 Last Admin: 09/20/21 16:21 Dose: 1,500 mg Documented by: [id number] Dexamethasone Sodium Phosphate (DexamethasonePf 10 Mg/Ml Vial) 6 mg IV NOW ONE Stop: 09/20/21 16:45 Last Admin: 09/20/21 17:12 Dose: 6 mg Documented by: [id number] Sodium Chloride (Nss 1000ml) 1,000 mls @ 999 mls/hr IV .Q1H1M ONE Stop: 09/20/21 16:14 Last Infusion: 09/20/21 17:17 Dose: 0 mls/hr Documented by: [id number] Admin: 09/20/21 15:43 Dose: 999 mls/hr Documented by: [id number] Sodium Chloride (Nss 1000ml) 1,000 mls @ 999 mls/hr IV .Q1H1M ONE Stop: 09/20/21 17:14 Last Infusion: 09/20/21 22:36 Dose: 0 mls/hr Documented by: [id number] Admin: 09/20/21 17:13 Dose: 999 mls/hr Documented by: [id number] Sodium Chloride (Nss 1000ml) 1,000 mls @ 100 mls/hr IV .Q10H [facility] Stop: 10/20/21 17:29 Last Infusion: 09/21/21 04:15 Dose: 0 mls/hr Documented by: [id number] Admin: 09/20/21 19:00 Dose: 100 mls/hr Documented by: [id number] Magnesium Oxide (Magnesium Oxide 400 Mg Tab) 800 mg PO NOW STA Stop: 09/20/21 16:15 Last Admin: 09/20/21 16:22 Dose: 800 mg Documented by: [id number] Imaging Data Radiologist's Impression: Chest X-Ray 09/20/21 15:14 XR chest 1V portable HISTORY: Dyspnea COMPARISON: Chest 11/11/2017 FINDINGS: No pneumothorax. No pleural effusions. The heart remains mildly enlarged. There are near diffuse patchy bilateral airspace opacities. This favors a viral pneumonia. Advanced degenerative changes within the shoulders. IMPRESSION: Near diffuse patchy bilateral airspace opacities which favors a viral pneumonia. Pulmonary edema could also have a similar appearance in the appropriate clinical setting. ACT 112: Negative or not required by law. Electronically signed by: Gurwinder Bower M.D. 09/20/2021 3:45 PM Discharge Plan Visit Data Chief Complaint: Illness Stated Complaint: Illness, SOB ED Provider: Ron Nava Discharge Problem: Acute hypoxemic respiratory failure, Pneumonia due to COVID-19 virus, Hypocalcemia, Hypomagnesemia, Acute hyponatremia, VALENTÍN (acute kidney injury) Patient Disposition: Admitted As Inpatient Discharge Instructions Interventions: ED Discharge Assessment Last Done: 09/20/21 19:52
[2021-09-20] MEDS ORDERED: SODIUM CHLORIDE 0.9% 1000ML 1,000 ML IV ONE ×2 (15:14→16:14)
[2021-09-20 15:39] LABS: Basophils # (auto) 0.01 K/uL (0-0.2); Basophils % (auto) 0.1 %; Hematocrit (blood only) 28.7 % (37-47); Hemoglobin 9.6 g/dL (12.0-16.0); Immature Granulocytes # (auto) 0.04 K/uL (0.00-0.02); Immature Granulocytes % (auto) 0.5 %; Lymphocytes # (auto) 0.76 K/uL (1.2-3.4); Mean Corpuscular Hemoglobin 28.1 pg (25-34); Mean Corpuscular Hgb Conc 33.4 g/dL (32-36); Mean Corpuscular Volume 83.9 fL (80-100); Mean Platelet Volume 8.7 fL (7.4-10.4); Monocytes # (auto) 0.94 K/uL (0.11-0.59); Monocytes % (auto) 11.1 %; Neutrophils # (auto) 6.69 K/uL (1.4-6.5); Neutrophils % (auto) 79.3 %; Platelet Count 277 K/uL (130-400); RDW Coefficient of Variation 13.4 % (11.5-14.5); RDW Standard Deviation 40.6 fL (36.4-46.3); Red Blood Count 3.42 M/uL (4.2-5.4); White Blood Count 8.44 K/uL (4.8-10.8)
--- NOTE | 2021-09-20 15:47 | XRay Report ---
XR chest 1V portable HISTORY: Dyspnea COMPARISON: Chest 11/11/2017 FINDINGS: No pneumothorax. No pleural effusions. The heart remains mildly enlarged. There are near di ffuse patchy bilateral airspace opacities. This favors a viral pneumonia. Advanced degenerative doran es within the shoulders. IMPRESSION: Near diffuse patchy bilateral airspace opacities which favors a viral pneumonia. Pulmonary edema coul d also have a similar appearance in the appropriate clinical setting. ACT 112: Negative or not required by law. Electronically signed by: Gurwinder Bower M.D. 09/20/2021 3:45 PM
[2021-09-20 15:56] LABS: Alanine Aminotransferase 26 U/L (12-78); Albumin Level 2.6 gm/dl (3.4-5.0); Aspartate Aminotransferase 32 U/L (15-37); BUN Creatinine Ratio 13.2 (10-20); Blood Urea Nitrogen 58 mg/dl (7-18); Calcium 7.9 mg/dl (8.5-10.1); Carbon Dioxide 21 mmol/L (21-32); Chloride 94 mmol/L (98-107); Est GFR (African American) 11.1 ml/min; Est GFR (Non-African American) 9.6 ml/min; Glucose 263 mg/dl (70-99); Magnesium 1.7 mg/dl (1.8-2.4); Potassium 4.1 mmol/L (3.5-5.1); Sodium 124 mmol/L (136-145)
[2021-09-20 16:01] LABS: Albumin Globulin Ratio 0.6 (0.9-2); Alkaline Phosphatase 84 U/L (45-117); Bilirubin,Total 0.4 mg/dl (0.2-1); Globulin 4.3 gm/dl (2.5-4.0); Total Protein 6.9 gm/dl (6.4-8.2); Troponin I < 0.015 ng/ml (0-0.045)
[2021-09-20 16:06] LABS: Influenza A virus by PCR Negative (Negative); Influenza B virus by PCR Negative (Negative)
[2021-09-20] MEDS ORDERED: MAGNESIUM OXIDE 400 MG TAB PO STA (16:14)
[2021-09-20] MEDS ORDERED: CALCIUM CARBONATE 500 MG CHEWABLE TAB PO STA (16:14)
[2021-09-20] MEDS ORDERED: dexAMETHasone**PF** 10 MG/ML VIAL IV ONE (16:44)
[2021-09-20] MEDS ORDERED: SODIUM CHLORIDE 0.9% 1000ML 1,000 ML IV SCH (17:30)
--- NOTE | 2021-09-20 17:33 | Electrocardiogram Report ---
Test Reason : Blood Pressure : / mmHG Vent. Rate : 088 BPM Atrial Rate : 088 BPM P-R Int : 212 ms QRS Dur : 102 ms QT Int : 348 ms P-R-T Axes : 044 -06 058 degrees QTc Int : 421 ms Sinus rhythm with 1st degree A-V block Low voltage QRS Borderline ECG When compared with ECG of 11-NOV-2017 16:37, No significant change was found Confirmed by Ricky Villarreal ([id number]) on 09/20/2021 5:32:44 PM Referred By: Confirmed By:Joshua Villarreal
[2021-09-20] MEDS ORDERED: CARBOHYDRATES FOR HYPOGLYCEMIA PO PRN ×2 (17:45→20:10)
[2021-09-20] MEDS ORDERED: DEXTROSE 50% 50 ML SYRINGE IV PRN ×2 (17:45→20:10)
[2021-09-20] MEDS ORDERED: GLUCAGON FOR INJ 1 MG VIAL IM PRN (17:45)
[2021-09-20] MEDS ORDERED: GLUCOSE 10 TABS/TUBE PO PRN ×2 (17:45→20:10)
[2021-09-20] MEDS ORDERED: GLUCOSE 40% GEL 15 GM TUBE PO PRN ×2 (17:45→20:10)
--- NOTE | 2021-09-20 17:50 | History & Physical Report ---
Date of Service September 20, 2021 Assessment & Plan (1) Acute hypoxemic respiratory failure: Plan: - Continue supplemental O2 titrated to maintain pulseox 92% - Dexamethasone 6 mg IV daily - Not a candidate for remdesivir due to VALENTÍN/duration of symptoms - Continue nebs scheduled with additional PRN (2) Pneumonia due to COVID-19 virus: Plan: See plan for #1 (3) Hypomagnesemia: Plan: Repleted in ED - recheck labs (4) Acute hyponatremia: Plan: IV NSS at 100 ml/hr - BMP Q8 hrs x 3 then daily (5) Acute kidney injury superimposed on CKD: Plan: Likely due to poor oral intake/diarrhea - IVF per #4, follow labs Holding Lisinopril for now (6) Type 2 diabetes mellitus: Plan: Sugars have been elevated past several days and suspect will be more elevated due to steroids - Lantus 20 units BID - Novolog sliding scale - Accuchecks ACHS - Diabetic diet (7) Moderate persistent asthma: (8) HTN (hypertension): (9) Dyslipidemia: Plan: Continue home meds as appropriate. Pt seen and reviewed with attending physician, Dr. Feliciano. Plan of care discussed and as outlined above. DVT Prophylaxis: subQ heparin - confirmed dosing with pharmacy Code Status: full code Darci Manuel PA-C History of Present Illness Chief Complaint: low oxygen, shortness of breath Primary Care Provider: Elgin Curran MD This is a 71 y/o female with a PMH of insulin-requiring diabetes, asthma, HTN, CKD4, heart failure, OA, dyslipidemia, obsesity and anxiety who presented to the ED from her PCP office today after she presented there with 12 days of progressive respiratory symptoms and was found to have a pulseox in the 70s on room air so referred to the ED. Pt reports that started with a cough and head congestion on 09/08. Her was sick first with similar symptoms. Since symptoms started, she has noted gradual worsening with progressive fatigue, weakness, chest tightness, wheezing and IBANEZ. Her appetite has been decreased with limited oral intake. She notes frequent non-bloody diarrhea but no N/V. She went to her PCP today due to these symptoms getting worse - sent to ED. Denies fevers but has noted chills. Some dizziness but no syncope. Sugars have been elevated over the past several days (250s). Pt is not vaccinated for COVID, has not gotten the flu vaccine this year. Allergies Allergy/AdvReac Type Severity Reaction Status Date / Time adhesive Allergy Unknown BLISTERS Verified 09/20/21 16:14 WITH SOME TAPE Penicillins Allergy Unknown redness,swe Verified 09/20/21 16:14 lling propoxyphene AdvReac Unknown LIGHT Verified 09/20/21 16:14 HEADED AND DIZZY,NAUSEA Home Medications Medication Instructions Recorded Confirmed Type albuterol sulfate 2.5 mg INHALATION Q6 PRN 09/20/21 09/20/21 History aspirin 81 mg tablet,delayed 81 mg PO DAILY 09/20/21 09/20/21 History release (Aspirin Low Dose) budesonide-formoterol HFA 160 2 puff INHALATION BID 09/20/21 09/20/21 History mcg-4.5 mcg/actuation aerosol inhaler (Symbicort) cholecalciferol (vitamin D3) 25 25 mcg PO DAILY 09/20/21 09/20/21 History mcg (1,000 unit) tablet (Vitamin D3) cinnamon bark 500 mg capsule 500 mg PO DAILY 09/20/21 09/20/21 History (Cinnamon) citalopram 40 mg tablet 40 mg PO DAILY 09/20/21 09/20/21 History doxepin 25 mg capsule 25 mg PO DAILY 09/20/21 09/20/21 History furosemide 20 mg tablet 20 mg PO BID PRN 09/20/21 09/20/21 History hydralazine 25 mg tablet 25 mg PO TID 09/20/21 09/20/21 History insulin aspart U-100 100 unit/mL 4 unit SUBCUT UD 09/20/21 09/20/21 History (3 mL) subcutaneous pen (Novolog Flexpen U-100 Insulin aspart) insulin glargine 100 unit/mL (3 42 unit SUBCUT HS 09/20/21 09/20/21 History mL) subcutaneous pen (Lantus Solostar U-100 Insulin) levalbuterol tartrate 45 2 puff INHALATION BID 09/20/21 09/20/21 History mcg/actuation aerosol inhaler liraglutide 0.6 mg/0.1 mL (18 mg/3 1.2 mg SUBCUT QAM 09/20/21 09/20/21 History mL) subcutaneous pen injector (Victoza 2-Anup) lisinopril 10 mg tablet 10 mg PO DAILY 09/20/21 09/20/21 History melatonin 10 mg tablet 10 mg PO HS 09/20/21 09/20/21 History montelukast 10 mg tablet 10 mg PO HS 09/20/21 09/20/21 History multivitamin 1 tab PO DAILY 09/20/21 09/20/21 History simvastatin 20 mg tablet 20 mg PO HS 09/20/21 09/20/21 History tramadol 50 mg tablet 50 mg PO Q6H PRN 09/20/21 09/20/21 History trazodone 100 mg tablet 100 mg PO HS 09/20/21 09/20/21 History guaifenesin 200 mg tablet 200 mg PO TID PRN #21 tab 09/24/21 Rx prednisone 20 mg tablet 20 mg PO UD #10 tab 09/24/21 Rx Past Med/Surg History Medical History Anxiety CKD (chronic kidney disease) stage 4, GFR 15-29 ml/min Dyslipidemia Fall Femur fracture, right History of heart failure HTN (hypertension) Moderate persistent asthma Type 2 diabetes mellitus insulin-requiring Surgical History History of arthroplasty of left knee History of arthroplasty of right knee History of cholecystectomy History of D&C History of shoulder surgery Family History Mother Diabetes Hypertension Grandmother Diabetes Cancer Father Cancer Brother Hypertension Social History Smoking Status: Never smoker Hx Alcohol Use: No Hx Substance Use: No Preferred Language: Welsh Catalogue Compiler Required: No Beliefs That Will Affect Care: None Current Living Situation: Spouse Other Information That Helps Us Care for You: No Feels Safe at Home: Yes Safety Concerns: Feels Safe At This Time Review of Systems Review of Systems: All systems reviewed & are unremarkable except as noted in HPI & below Constitutional: + chills, + fatigue, + malaise, + weakness and + anorexia; no fever Ear, Nose, Mouth, Throat: + sore throat; no nasal congestion and no nasal discharge Respiratory: + cough, + chest congestion, + dyspnea and + wheezing Cardiovascular: no chest pain, no palpitations, no syncope and no edema Gastrointestinal: + diarrhea/loose stools; no abdominal pain, no nausea and no vomiting Genitourinary: no dysuria, no urinary frequency and no hematuria Musculoskeletal: + myalgia; no back pain and no neck pain Integumentary: no rash and no yellowing of the skin Neurologic: + generalized weakness, + dizziness and + headache(s) Physical Exam Constitutional: well developed, well nourished and + ill appearing; no acute distress Eyes: PERRL, conjunctivae normal, anicteric sclerae ENMT: external ear and nose normal, oropharynx normal Neck: trachea midline Respiratory: + tachypneic; no respiratory distress Auscultation: + diminished lung sounds, + crackles (at bilateral bases) and + wheezes (faint expiratory) Cardiovascular: Rate/Rhythm: regular rate and regular rhythm Vessels: dorsalis pedis pulses present and radial pulses present Extremities: normal capillary refill; no pedal edema Gastrointestinal (Abdomen): Inspection/Auscultation: normal bowel sounds; abdomen not distended Percussion/Palpation: abdomen soft; abdomen nontender Musculoskeletal: Head/Neck/Chest: normocephalic, head atraumatic and neck supple Skin: no jaundice Neurologic: moves all extremities; no focal motor deficits Psychiatric: A+Ox3, euthymic affect Results & Data Results & Data ([facility]) Vital Signs (Past 12 Hours) Vital Signs Temp Pulse Resp BP Pulse Ox 09/20/21 17:00 80 23 140/69 95 09/20/21 16:30 85 31 H 154/70 H 93 09/20/21 16:00 80 33 H 137/72 92 09/20/21 15:34 37 C 94 H 26 H 152/75 H 75 L 09/20/21 15:30 83 35 H 09/20/21 15:20 75 L 09/20/21 15:14 87 25 H 99 Laboratory Results Laboratory Results - last 24 hr 09/20/21 09/20/21 09/20/21 15:24 15:24 15:24 WBC 8.44 RBC 3.42 L Hgb 9.6 L Hct 28.7 L MCV 83.9 MCH 28.1 MCHC 33.4 RDW Std Deviation 40.6 RDW Coeff of Mile 13.4 Plt Count 277 MPV 8.7 Immature Gran % (Auto) 0.5 Neut % (Auto) 79.3 Lymph % (Auto) 9.0 Sierra % (Auto) 11.1 Eos % (Auto) 0.0 Baso % (Auto) 0.1 Neut # (Auto) 6.69 H Lymph # (Auto) 0.76 L Sierra # (Auto) 0.94 H Eos # (Auto) 0.00 Baso # (Auto) 0.01 Immature Gran # (Auto) 0.04 H Sodium 124 L Potassium 4.1 Chloride 94 L Carbon Dioxide 21 Anion Gap 9.0 BUN 58 H Creatinine 4.41 H Est Cr Clr Drug Dosing Not Reportable Est GFR ( Amer) 11.1 Est GFR (Non-Af Amer) 9.6 BUN/Creatinine Ratio 13.2 Glucose 263 H POC Glucose Osmolality Calcium 7.9 L Magnesium 1.7 L Total Bilirubin 0.4 AST 32 ALT 26 Alkaline Phosphatase 84 Troponin I < 0.015 Total Protein 6.9 Albumin 2.6 L Globulin 4.3 H Albumin/Globulin Ratio 0.6 L Procalcitonin 0.31 SARS-CoV-2 (PCR) Influ A Molecular Assay Influ B Molecular Assay 09/20/21 09/20/21 09/20/21 15:24 15:24 15:24 WBC RBC Hgb Hct MCV MCH MCHC RDW Std Deviation RDW Coeff of Mile Plt Count MPV Immature Gran % (Auto) Neut % (Auto) Lymph % (Auto) Sierra % (Auto) Eos % (Auto) Baso % (Auto) Neut # (Auto) Lymph # (Auto) Sierra # (Auto) Eos # (Auto) Baso # (Auto) Immature Gran # (Auto) Sodium Potassium Chloride Carbon Dioxide Anion Gap BUN Creatinine Est Cr Clr Drug Dosing Est GFR ( Amer) Est GFR (Non-Af Amer) BUN/Creatinine Ratio Glucose POC Glucose Osmolality 289 Calcium Magnesium Total Bilirubin AST ALT Alkaline Phosphatase Troponin I Total Protein Albumin Globulin Albumin/Globulin Ratio Procalcitonin SARS-CoV-2 (PCR) POSITIVE A* Influ A Molecular Assay Negative Influ B Molecular Assay Negative 09/20/21 19:08 WBC RBC Hgb Hct MCV MCH MCHC RDW Std Deviation RDW Coeff of Mile Plt Count MPV Immature Gran % (Auto) Neut % (Auto) Lymph % (Auto) Sierra % (Auto) Eos % (Auto) Baso % (Auto) Neut # (Auto) Lymph # (Auto) Sierra # (Auto) Eos # (Auto) Baso # (Auto) Immature Gran # (Auto) Sodium Potassium Chloride Carbon Dioxide Anion Gap BUN Creatinine Est Cr Clr Drug Dosing Est GFR ( Amer) Est GFR (Non-Af Amer) BUN/Creatinine Ratio Glucose POC Glucose 207 H Osmolality Calcium Magnesium Total Bilirubin AST ALT Alkaline Phosphatase Troponin I Total Protein Albumin Globulin Albumin/Globulin Ratio Procalcitonin SARS-CoV-2 (PCR) Influ A Molecular Assay Influ B Molecular Assay Diagnostic Findings Chest X-ray 09/20/21 - IMPRESSION: Near diffuse patchy bilateral airspace opacities which favors a viral pneumonia. Pulmonary edema could also have a similar appearance in the appropriate clinical setting. Medications Administered Discontinued Medications Calcium Carbonate (Calcium Carbonate 500 Mg Chewable Tab) 1,500 mg PO NOW STA Stop: 09/20/21 16:15 Last Admin: 09/20/21 16:21 Dose: 1,500 mg Documented by: [id number] Dexamethasone Sodium Phosphate (DexamethasonePf 10 Mg/Ml Vial) 6 mg IV NOW ONE Stop: 09/20/21 16:45 Last Admin: 09/20/21 17:12 Dose: 6 mg Documented by: [id number] Sodium Chloride (Nss 1000ml) 1,000 mls @ 999 mls/hr IV .Q1H1M ONE Stop: 09/20/21 16:14 Last Infusion: 09/20/21 17:17 Dose: 0 mls/hr Documented by: [id number] Admin: 09/20/21 15:43 Dose: 999 mls/hr Documented by: [id number] Sodium Chloride (Nss 1000ml) 1,000 mls @ 999 mls/hr IV .Q1H1M ONE Stop: 09/20/21 17:14 Last Admin: 09/20/21 17:13 Dose: 999 mls/hr Documented by: [id number] Magnesium Oxide (Magnesium Oxide 400 Mg Tab) 800 mg PO NOW STA Stop: 09/20/21 16:15 Last Admin: 09/20/21 16:22 Dose: 800 mg Documented by: [id number] Code Status & VTE Plan VTE Prophylaxis Plan VTE Prophylaxis will be ordered: Yes Supervising Physician Co-Signing Physician Notes Pt was seen and examined. Agreed with Hieu MANZANARES exam, assessment and plan. 71 y/o female with a PMH of insulin-requiring diabetes, asthma, HTN, CKD4, heart failure, OA, dyslipidemia, obsesity and anxiety was sent to the ER after seeing her PCP today for worsening SOB that has been going on for 12 days.Her oxygen level was in the 70's at the doctor office. Pt reports that started with a cough and head congestion on 09/08. Her was sick first with similar symptoms. She said she has been feeling fatigued, weak, chest tightness and shortness of breath with minimal exertion. She was tested positive for Covid 19 and she did not get the vaccine. Chest x-ray showed near diffuse patchy bilateral airspace opacities which favors a viral pneumonia.will start on Dexamethasone 6 mg IV daily. Not a candidate for remdesivir due to VALENTÍN/duration of symptoms. We will start respiratory treatment such as flutter valve and i ncentive spirometry and guaifenesin. Continue oxygen supplement. Continue monitor closely in the PCU. MD Jodie
[2021-09-20] MEDS ORDERED: GLUCAGON FOR INJ 1 MG VIAL SQ PRN (20:10)
[2021-09-20] MEDS ORDERED: ACETAMINOPHEN 325 MG TAB PO PRN (20:10)
[2021-09-20] MEDS ORDERED: ALBUT/IPRATROP 3MG/0.5MG NEB 3 ML VIAL NEB PRN (21:25)
[2021-09-20] MEDS: INSULIN ASPART 100 UNITS/ML 3 ML PEN SC SCH (21:47)
[2021-09-20] MEDS: INSULIN GLARGINE SOLOSTAR 100 UNITS/ML 3 ML PEN SC SCH (21:48)
[2021-09-20] MEDS: traZODone HCL 100 MG TAB PO SCH (22:16)
[2021-09-20] MEDS: MONTELUKAST SODIUM 10 MG TABLET PO SCH (22:20)
[2021-09-20] MEDS: hydrALAZINE HCL 25 MG TAB PO SCH (22:20)
[2021-09-20] MEDS: MELATONIN 3 MG TAB PO SCH (22:20)
[2021-09-20] MEDS: SIMVASTATIN 20 MG TAB PO SCH (22:21)
[2021-09-20] MEDS: HEPARIN SOD 5,000 UNIT/0.5 ML VIAL SQ SCH (22:22)
[2021-09-21 00:08] LABS: BUN Creatinine Ratio 14.5 (10-20); Calcium 7.4 mg/dl (8.5-10.1); Est GFR (African American) 13.5 ml/min; Est GFR (Non-African American) 11.7 ml/min; Magnesium 1.7 mg/dl (1.8-2.4); Potassium 4.3 mmol/L (3.5-5.1)
[2021-09-21] MEDS: HEPARIN SOD 5,000 UNIT/0.5 ML VIAL SQ SCH ×3 (06:35→23:52)
[2021-09-21] MEDS ORDERED: ALBUT/IPRATROP 3MG/0.5MG NEB 3 ML VIAL NEB SCH (07:00)
[2021-09-21 07:22] LABS: Appearance Urine Clear (Clear); Bacteria Urine Automated Negative (Negative); Bilirubin Urine Negative (Negative); Blood Urine Negative (Negative); Color Urine Yellow; Epithelial Cell Urine Auto 0-5 /lpf (0-5); Glucose Urine UA Negative (Negative); Ketones Urine Negative (Negative); Leukocyte Esterase Urine Negative (Negative); Nitrite Urine Negative (Negative); Protein Urine Trace (Negative); Specific Gravity Urine 1.007 (1.000-1.030); Urobilinogen Urine Negative (Negative)
[2021-09-21 07:40] LABS: Basophils # (auto) 0.01 K/uL (0-0.2); Basophils % (auto) 0.2 %; Hematocrit (blood only) 30.3 % (37-47); Hemoglobin 9.9 g/dL (12.0-16.0); Immature Granulocytes # (auto) 0.05 K/uL (0.00-0.02); Lymphocytes # (auto) 0.83 K/uL (1.2-3.4); Lymphocytes % (auto) 17.4 %; Mean Corpuscular Hemoglobin 27.7 pg (25-34); Mean Corpuscular Hgb Conc 32.7 g/dL (32-36); Mean Corpuscular Volume 84.9 fL (80-100); Mean Platelet Volume 8.6 fL (7.4-10.4); Monocytes # (auto) 0.24 K/uL (0.11-0.59); Neutrophils # (auto) 3.65 K/uL (1.4-6.5); Neutrophils % (auto) 76.4 %; Platelet Count 287 K/uL (130-400); RDW Coefficient of Variation 13.3 % (11.5-14.5); RDW Standard Deviation 41.4 fL (36.4-46.3); Red Blood Count 3.57 M/uL (4.2-5.4); White Blood Count 4.78 K/uL (4.8-10.8)
[2021-09-21 08:05] LABS: BUN Creatinine Ratio 16.5 (10-20); Calcium 7.7 mg/dl (8.5-10.1); Creatinine Clr Calc Pharmacy 16.8 ml/min; Est GFR (African American) 15.5 ml/min; Est GFR (Non-African American) 13.4 ml/min; Potassium 4.6 mmol/L (3.5-5.1)
[2021-09-21] MEDS: FLUTICASONE/VILANTEROL 200/25MCG 14 PUFFS/INHALER INH SCH (08:17)
[2021-09-21] MEDS: DOXEPIN HCL 25 MG CAPSULE PO SCH (08:17)
[2021-09-21] MEDS: ASPIRIN 81 MG ECTAB PO SCH (08:17)
[2021-09-21] MEDS: hydrALAZINE HCL 25 MG TAB PO SCH ×4 (08:18→23:51)
[2021-09-21] MEDS: CITALOPRAM 40 MG TAB PO SCH (08:18)
[2021-09-21 08:24] LABS: Urine Potassium 4.1 mmol/L
[2021-09-21] MEDS: INSULIN ASPART 100 UNITS/ML 3 ML PEN SC SCH ×4 (09:43→21:00)
[2021-09-21] MEDS: INSULIN GLARGINE SOLOSTAR 100 UNITS/ML 3 ML PEN SC SCH (09:44)
[2021-09-21] MEDS: dexAMETHasone 6 MG in SYRINGE 0 ML IV SCH (09:44)
[2021-09-21] MEDS ORDERED: MAGNESIUM SULFATE / D5W 1 GM/100 ML BAG IV ONE (16:28)
[2021-09-21 16:49] LABS: BUN Creatinine Ratio 17.5 (10-20); Calcium 8.6 mg/dl (8.5-10.1); Est GFR (African American) 16.9 ml/min; Est GFR (Non-African American) 14.6 ml/min; Potassium 4.3 mmol/L (3.5-5.1)
[2021-09-21] MEDS: traZODone HCL 100 MG TAB PO SCH (23:50)
[2021-09-21] MEDS: MELATONIN 3 MG TAB PO SCH (23:50)
[2021-09-21] MEDS: MONTELUKAST SODIUM 10 MG TABLET PO SCH (23:51)
[2021-09-21] MEDS: SIMVASTATIN 20 MG TAB PO SCH (23:52)
--- NOTE | 2021-09-21 23:56 | Hospitalist Progress Note ---
Date of Service September 21, 2021 Assessment & Plan (1) Acute hypoxemic respiratory failure: Plan: Present on admission with worsening SOB CXR showed near diffuse patchy bilateral airspace opacities which favors a viral pneumonia. Continue IV Dexamethasone 6 mg daily Not a candidate for Remdesivir due to GFR less than 30 and symptoms duration more than 10 days Continue oxygen supplement Incentive spirometry and flutter valve (2) Pneumonia due to COVID-19 virus: Plan: Present on admission with worsening SOB CXR showed near diffuse patchy bilateral airspace opacities which favors a viral pneumonia. Continue IV Dexamethasone 6 mg daily Not a candidate for Remdesivir due to GFR less than 30 and symptoms duration more than 10 days Continue oxygen supplement Incentive spirometry and flutter valve (3) Hypomagnesemia: Plan: Mg on admission 1.7 Mg replaced (4) Acute hyponatremia: Plan: Sodium 132 today Continue monitor BMP (5) Acute kidney injury superimposed on CKD: Plan: Creatinine on admission 4.41 Received IVF Continue to hold Lisinopril Creatinine is trending down Continue monitor BMP (6) Type 2 diabetes mellitus: Plan: Most recent hba1c 8.3 Lantus 20 units BID and Novolog sliding scale Continue monitor BS (7) Moderate persistent asthma: (8) HTN (hypertension): (9) Dyslipidemia: Plan: Continue home meds as appropriate. DVT px on heparin subq Code Status: full code Admission and Anticipated Discharge Date Admission Date: September 20, 2021 Subjective Pt was seen and examined for follow up of SOB due to COVID 19 Lying in bed with no acute distress She said that her breathing slightly improves Continue to have SOB and required 2L NC Denies any chest pain, palpitation, dizziness and fever Review of Systems Review of Systems: All systems reviewed & are unremarkable except as noted in Subjective Physical Exam Physical Exam: General- No acute distress Head- atraumatic Eyes- PERRL, EOMI, ENT- oropharynx clear Neck- supple, no JVD Lungs- +diminished BS Heart- regular rhythm; no murmur Abdomen- normal bowel sounds, soft, nontender Extremities- no calf tenderness Neuro- alert, oriented x 3; PERRL, EOMI; no facial palsy; no dysarthria Skin- warm & dry Results & Data Results & Data ([facility]) Vital Signs (Past 12 Hours) Vital Signs Temp Pulse Pulse Resp BP Pulse Ox 09/21/21 23:43 36.7 C 66 20 135/73 95 09/21/21 19:47 36.5 C 69 18 129/57 L 92 09/21/21 16:00 91 H 09/21/21 15:51 36.8 C 65 18 128/52 L 93 09/21/21 12:00 36.8 C 61 20 136/80 95
[2021-09-22] MEDS: INSULIN GLARGINE SOLOSTAR 100 UNITS/ML 3 ML PEN SC SCH ×3 (00:05→20:38)
[2021-09-22] MEDS: HEPARIN SOD 5,000 UNIT/0.5 ML VIAL SQ SCH ×3 (06:19→20:47)
[2021-09-22] MEDS: INSULIN ASPART 100 UNITS/ML 3 ML PEN SC SCH ×5 (08:10→23:20)
[2021-09-22] MEDS: dexAMETHasone 6 MG in SYRINGE 0 ML IV SCH (08:15)
[2021-09-22] MEDS: CITALOPRAM 40 MG TAB PO SCH (08:15)
[2021-09-22] MEDS: DOXEPIN HCL 25 MG CAPSULE PO SCH (08:15)
[2021-09-22] MEDS: ASPIRIN 81 MG ECTAB PO SCH (08:15)
[2021-09-22] MEDS: FLUTICASONE/VILANTEROL 200/25MCG 14 PUFFS/INHALER INH SCH (08:16)
[2021-09-22 10:18] LABS: BUN Creatinine Ratio 22.5 (10-20); C Reactive Protein 5.71 mg/dl (0-0.29); Creatinine Clr Calc Pharmacy 21.8 ml/min; Est GFR (African American) 21.3 ml/min; Est GFR (Non-African American) 18.3 ml/min; Ferritin 182.5 ng/ml (8-388); Potassium 4.6 mmol/L (3.5-5.1)
[2021-09-22 10:36] LABS: Beta-Hydroxybutyrate 2.89 mg/dl (0.2-2.81)
[2021-09-22] MEDS ORDERED: PHARMACY GLYCEMIC MGMT CONSULT PRN (11:00)
[2021-09-22] MEDS: hydrALAZINE HCL 25 MG TAB PO SCH ×2 (13:59→20:46)
--- NOTE | 2021-09-22 14:48 | Pharmacy Report ---
Pharmacy Glycemic Short Note 2 - Date of Service September 22, 2021 - Glycemic Short BSG Results (Last 24 hours): 09/21/21 09/21/21 09/21/21 15:34 16:39 20:28 Glucose 196 H POC Glucose 138 H 159 H 09/22/21 09/22/21 09/22/21 07:24 09:24 11:38 Glucose 342 H* POC Glucose 290 H 277 H OUTPATIENT ANTIDIABETIC REGIMEN: * Lantus 42 units HS * [id number] 4 units sliding scale UD * Victoza 1.2 mg SQ QAM ASSESSMENT: * 71 y/o F admitted for Covid and hypoxia. Patient with history of Type 2 diabetes managed on above meds. * Pt was started on Lantus 20 units BID then increased to 25 units BID on ad mission. * Pt was started on IV Decadron 6 mg daily 2 days ago which has been contributing to the hyperglycemia. * Fasting BSG today was 290 mg/dl. Pharmacy was consulted today around lunch time. By that time, Novolog dose for lunch was already given. * Post-prandial BSGs last evening came down quickly to goal. Novolog parameters loosened with dinner today. * Plan to start NPH insulin tomorrow AM to be given with IV Decadron. * Continue Lantus 25 units BID for now. PLAN FOR INPATIENT GLYCEMIC CONTROL: * Hold outpatient oral diabetes medications * Basal insulin * Lantus 25 units SQ BID * Bolus insulin * NovoLog per scale ACHS or Q6hrs while NPO * Added 00 and 04 checks * Goal Range: Low 110 mg/dL - High 140 mg/dL * Correction Factor: 15 mg/dL/unit * Nutritional / Prandial insulin per carb ratio of 1 unit per 6 grams CHO consumed PLAN FOR DISCHARGE: * TBD
[2021-09-22] MEDS: MONTELUKAST SODIUM 10 MG TABLET PO SCH (20:46)
[2021-09-22] MEDS: SIMVASTATIN 20 MG TAB PO SCH (20:46)
[2021-09-22] MEDS: MELATONIN 3 MG TAB PO SCH (22:29)
[2021-09-22] MEDS: traZODone HCL 100 MG TAB PO SCH (22:29)
--- NOTE | 2021-09-22 23:05 | Hospitalist Progress Note ---
Date of Service September 22, 2021 Assessment & Plan (1) Acute hypoxemic respiratory failure: Plan: Present on admission with worsening SOB CXR showed near diffuse patchy bilateral airspace opacities which favors a viral pneumonia. Continue IV Dexamethasone 6 mg daily Not a candidate for Remdesivir due to GFR less than 30 and symptoms duration more than 10 days Continue oxygen supplement Incentive spirometry and flutter valve (2) Pneumonia due to COVID-19 virus: Plan: Present on admission with worsening SOB CXR showed near diffuse patchy bilateral airspace opacities which favors a viral pneumonia. Continue IV Dexamethasone 6 mg daily Not a candidate for Remdesivir due to GFR less than 30 and symptoms duration more than 10 days Continue oxygen supplement Incentive spirometry and flutter valve (3) Hypomagnesemia: Plan: Mg on admission 1.7 Continue monitor electrolytes (4) Acute hyponatremia: Plan: Sodium 132 today Continue monitor BMP (5) Acute kidney injury superimposed on CKD: Plan: Creatinine on admission 4.41 Received IVF Continue to hold Lisinopril Creatinine is trending down Continue monitor BMP (6) Type 2 diabetes mellitus: Plan: Most recent hba1c 8.3 Lantus 20 units BID and Novolog sliding scale Continue monitor BS (7) Moderate persistent asthma: (8) HTN (hypertension): (9) Dyslipidemia: Plan: Continue home meds as appropriate. 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 the hospital Denies any chest pain, palpitation, dizziness and fever Review of Systems Review of Systems: All systems reviewed & are unremarkable except as noted in Subjective Physical Exam Physical Exam: General- No acute distress Head- atraumatic Eyes- PERRL, EOMI, ENT- oropharynx clear Neck- supple, no JVD Lungs- +diminished BS Heart- regular rhythm; no murmur Abdomen- normal bowel sounds, soft, nontender Extremities- no calf tenderness Neuro- alert, oriented x 3; PERRL, EOMI; no facial palsy; no dysarthria Skin- warm & dry Results & Data Results & Data ([facility]) Vital Signs (Past 12 Hours) Vital Signs Temp Pulse Pulse Resp BP Pulse Ox Pulse Ox 09/22/21 20:25 36.9 C 75 24 151/79 H 96 09/22/21 20:00 96 09/22/21 16:00 71 09/22/21 15:37 36.7 C 67 20 134/71 94 09/22/21 12:31 36.3 C L 64 18 147/68 H 97
[2021-09-23] MEDS: INSULIN ASPART 100 UNITS/ML 3 ML PEN SC SCH ×5 (03:57→20:53)
[2021-09-23] MEDS: HEPARIN SOD 5,000 UNIT/0.5 ML VIAL SQ SCH ×3 (05:25→20:25)
[2021-09-23] MEDS: CITALOPRAM 40 MG TAB PO SCH (08:36)
[2021-09-23] MEDS: FLUTICASONE/VILANTEROL 200/25MCG 14 PUFFS/INHALER INH SCH (08:36)
[2021-09-23] MEDS: hydrALAZINE HCL 25 MG TAB PO SCH ×3 (08:37→20:26)
[2021-09-23] MEDS: DOXEPIN HCL 25 MG CAPSULE PO SCH (08:37)
[2021-09-23] MEDS: ASPIRIN 81 MG ECTAB PO SCH (08:38)
[2021-09-23 08:43] LABS: Hematocrit (blood only) 29.9 % (37-47); Hemoglobin 9.9 g/dL (12.0-16.0); Mean Corpuscular Hemoglobin 28.3 pg (25-34); Mean Corpuscular Hgb Conc 33.1 g/dL (32-36); Mean Corpuscular Volume 85.4 fL (80-100); Mean Platelet Volume 8.8 fL (7.4-10.4); Platelet Count 431 K/uL (130-400); RDW Coefficient of Variation 13.7 % (11.5-14.5); RDW Standard Deviation 43.1 fL (36.4-46.3); White Blood Count 10.68 K/uL (4.8-10.8)
[2021-09-23] MEDS: dexAMETHasone 6 MG in SYRINGE 0 ML IV SCH (08:47)
[2021-09-23 08:49] LABS: Estimated Average Glucose 206 mg/dl; Hemoglobin A1C 8.8 % (4.5-5.6)
[2021-09-23 09:02] LABS: Partial Thromboplastin Ratio 1.7; Partial Thromboplastin Time 43.6 Seconds (21.0-31.0)
[2021-09-23 11:06] LABS: BUN Creatinine Ratio 26.8 (10-20); Calcium 8.8 mg/dl (8.5-10.1); Creatinine Clr Calc Pharmacy 23.8 ml/min; Est GFR (African American) 23.6 ml/min; Est GFR (Non-African American) 20.3 ml/min; Potassium 4.7 mmol/L (3.5-5.1)
[2021-09-23] MEDS ORDERED: INSULIN GLARGINE SOLOSTAR 100 UNITS/ML 3 ML PEN SC ONE (13:00)
--- NOTE | 2021-09-23 13:16 | Pharmacy Report ---
Pharmacy Glycemic Short Note 2 - Date of Service September 23, 2021 - Glycemic Short BSG Results (Last 24 hours): 09/22/21 09/22/21 09/22/21 16:18 20:22 23:16 Glucose POC Glucose 119 H 127 H 103 H 09/23/21 09/23/21 09/23/21 03:36 07:56 07:56 Glucose 45 L* POC Glucose 108 H 53 L* 09/23/21 09/23/21 08:20 10:48 Glucose POC Glucose 111 H 208 H OUTPATIENT ANTIDIABETIC REGIMEN: * Lantus 42 units HS * [id number] 4 units sliding scale UD * Victoza 1.2 mg SQ QAM ASSESSMENT: 09/23/21 * BSGs yesterday were [phone] mg/dL and overnight were 103-108 mg/dL * Patient received 95 units of insulin yesterday (50 units of basal plus 45 units of bolus). * Fasting today is 53 mg/dL. Decrease basal by half to 20 units due to decreased PO intake and hypoglycemic event. * Continue Novolog. * Hyperglycemia at lunch to due treatment of hypoglycemic event. No changes for now. Background * 71 y/o F admitted for Covid and hypoxia. Patient with history of Type 2 diabetes managed on above meds. * Pt was started on Lantus 20 units BID then increased to 25 units BID on admission. * Pt was started on IV Decadron 6 mg daily 2 days ago which has been contributing to the hyperglycemia. * Fasting BSG today was 290 mg/dl. Pharmacy was consulted today around lunch time. By that time, Novolog dose for lunch was already given. * Post-prandial BSGs last evening came down quickly to goal. Novolog parameters loosened with dinner today. * Plan to start NPH insulin tomorrow AM to be given with IV Decadron. * Continue Lantus 25 units BID for now. PLAN FOR INPATIENT GLYCEMIC CONTROL: * Hold outpatient oral diabetes medications * Basal insulin * Lantus 20 units SQ daily * Bolus insulin * NovoLog per scale ACHS or Q6hrs while NPO * Goal Range: Low 110 mg/dL - High 140 mg/dL * Correction Factor: 15 mg/dL/unit * Nutritional / Prandial insulin per carb ratio of 1 unit per 6 grams CHO consumed PLAN FOR DISCHARGE: * HbA1C is 8.8% which is above goal of <8% for patient. * Would recommend working with outpatient provider to optimize insulin regimen. Currently regimen is very basal heavy so this could contribute to difficulty controlling BSGs.
[2021-09-23] MEDS: SIMVASTATIN 20 MG TAB PO SCH (20:25)
[2021-09-23] MEDS: traZODone HCL 100 MG TAB PO SCH (20:26)
[2021-09-23] MEDS: MONTELUKAST SODIUM 10 MG TABLET PO SCH (20:26)
[2021-09-23] MEDS: INSULIN GLARGINE SOLOSTAR 100 UNITS/ML 3 ML PEN SC SCH (20:54)
--- NOTE | 2021-09-23 21:53 | Hospitalist Progress Note ---
Date of Service September 23, 2021 Assessment & Plan (1) Acute hypoxemic respiratory failure: (2) Pneumonia due to COVID-19 virus: Plan: Present on admission with worsening SOB CXR showed near diffuse patchy bilateral airspace opacities which favors a viral pneumonia. Continue IV Dexamethasone 6 mg daily Not a candidate for Remdesivir due to GFR less than 30 and symptoms duration more than 10 days Continue oxygen supplement Will need a 2 step before discharge Continue Incentive spirometry and flutter valve (3) Hypomagnesemia: Plan: Mg on admission 1.7 Continue monitor electrolytes (4) Acute hyponatremia: Plan: Sodium 136 today Continue monitor BMP Resolved (5) Acute kidney injury superimposed on CKD: Plan: Creatinine on admission 4.41 Received IVF Continue to hold Lisinopril Creatinine is trending down Continue monitor BMP (6) Type 2 diabetes mellitus: Plan: Most recent hba1c 8.3 Lantus 20 units BID and Novolog sliding scale Continue monitor BS (7) Moderate persistent asthma: (8) HTN (hypertension): (9) Dyslipidemia: Plan: Continue home meds as appropriate. DVT px on heparin subq Code Status: full code Admission and Anticipated Discharge Date Admission Date: September 20, 2021 Subjective Pt was seen and examined for follow up of SOB due to COVID 19 Lying in bed with no acute distress Her breathing improves significantly Her saturation was above 90% on RA Denies any chest pain, palpitation, dizziness and fever Review of Systems Review of Systems: All systems reviewed & are unremarkable except as noted in Subjective Physical Exam Physical Exam: General- No acute distress Head- atraumatic Eyes- PERRL, EOMI, ENT- oropharynx clear Neck- supple, no JVD Lungs- +diminished BS Heart- regular rhythm; no murmur Abdomen- normal bowel sounds, soft, nontender Extremities- no calf tenderness Neuro- alert, oriented x 3; PERRL, EOMI; no facial palsy; no dysarthria Skin- warm & dry Results & Data Results & [facility] ([facility]) Vital Signs (Past 12 Hours) Vital Signs Temp Pulse Resp BP Pulse Ox 09/23/21 20:35 36.3 C L 74 180/85 H 92 09/23/21 15:29 36.6 C 66 16 154/87 H 94 09/23/21 13:00 93 09/23/21 10:51 36.3 C L 67 16 138/81 96
[2021-09-24] MEDS: MELATONIN 3 MG TAB PO SCH (00:33)
[2021-09-24] MEDS: HEPARIN SOD 5,000 UNIT/0.5 ML VIAL SQ SCH ×2 (06:09→12:49)
[2021-09-24] MEDS ORDERED: NovoLIN-N (NPH) PER UNIT CHARGE SQ SCH (09:00)
[2021-09-24] MEDS: FLUTICASONE/VILANTEROL 200/25MCG 14 PUFFS/INHALER INH SCH (09:07)
[2021-09-24] MEDS: DOXEPIN HCL 25 MG CAPSULE PO SCH (09:07)
[2021-09-24 09:08] LABS: Partial Thromboplastin Ratio 1.4; Partial Thromboplastin Time 36.7 Seconds (21.0-31.0)
[2021-09-24] MEDS: CITALOPRAM 40 MG TAB PO SCH (09:08)
[2021-09-24] MEDS: ASPIRIN 81 MG ECTAB PO SCH (09:08)
[2021-09-24] MEDS: hydrALAZINE HCL 25 MG TAB PO SCH ×2 (09:08→12:49)
[2021-09-24] MEDS: dexAMETHasone 6 MG in SYRINGE 0 ML IV SCH (10:27)
[2021-09-24] MEDS: INSULIN GLARGINE SOLOSTAR 100 UNITS/ML 3 ML PEN SC SCH (10:30)
[2021-09-24] MEDS: INSULIN ASPART 100 UNITS/ML 3 ML PEN SC SCH ×3 (12:01→17:45)
--- NOTE | 2021-09-24 16:10 | Discharge Summary ---
Date of Service September 24, 2021 Admission HPI Per Admitting Provider This is a 71 y/o female with a PMH of insulin-requiring diabetes, asthma, HTN, CKD4, heart failure, OA, dyslipidemia, obsesity and anxiety who presented to the ED from her PCP office today after she presented there with 12 days of progressive respiratory symptoms and was found to have a pulseox in the 70s on room air so referred to the ED. Pt reports that started with a cough and head congestion on 09/08. Her was sick first with similar symptoms. Since symptoms started, she has noted gradual worsening with progressive fatigue, weakness, chest tightness, wheezing and IBANEZ. Her appetite has been decreased with limited oral intake. She notes frequent non-bloody diarrhea but no N/V. She went to her PCP today due to these symptoms getting worse - sent to ED. Denies fevers but has noted chills. Some dizziness but no syncope. Sugars have been elevated over the past several days (250s). Pt is not vaccinated for COVID, has not gotten the flu vaccine this year. Admission Exam Per Admitting Provider Constitutional: well developed, well nourished and + ill appearing; no acute distress B Eyes: PERRL, conjunctivae normal, anicteric sclerae ENMT: external ear and nose normal, oropharynx normal Neck: trachea midline Respiratory: + tachypneic; no respiratory distress A uscultation: + diminished lung sounds, + crackles (at bilateral bases) and + wheezes (faint expiratory) Cardiovascular: Rate/Rhythm: regular rate and regular rhythm Vessels: dorsalis pedis pulses present and radial pulses present Extremities: normal capillary refill; no pedal edema Gastrointestinal (Abdomen): Inspection/Auscultation: normal bowel sounds; abdomen not distended Percussion/Palpation: abdomen soft; abdomen nontender Musculoskeletal: Head/Neck/Chest: normocephalic, head atraumatic and neck supple Skin: no jaundice Neurologic: moves all extremities; no focal motor deficits Psychiatric: A+Ox3, euthymic affect Principal Diagnosis 1) Acute hypoxemic respiratory failure: (2) Pneumonia due to COVID-19 virus: (3) Hypomagnesemia: (4) Acute hyponatremia: (5) Acute kidney injury superimposed on CKD: (6) Type 2 diabetes mellitus: (7) Moderate persistent asthma: (8) HTN (hypertension): (9) Dyslipidemia Discharge Exam General- No acute distress Head- atraumatic Eyes- PERRL, EOMI, ENT- oropharynx clear Neck- supple, no JVD Lungs- +diminished BS Heart- regular rhythm; no murmur Abdomen- normal bowel sounds, soft, nontender Extremities- no calf tenderness Neuro- alert, oriented x 3; PERRL, EOMI; no facial palsy; no dysarthria Skin- warm & dry Discharge Data Allergies Allergy/AdvReac Type Severity Reaction Status Date / Time adhesive Allergy Unknown BLISTERS Verified 09/20/21 16:14 WITH SOME TAPE Penicillins Allergy Unknown redness,swe Verified 09/20/21 16:14 lling propoxyphene AdvReac Unknown LIGHT Verified 09/20/21 16:14 HEADED AND DIZZY,NAUSEA Consultations 09/20/21 16:45 ED Decision to Admit Stat Ordered Studies XR chest 1V portable HISTORY: Dyspnea COMPARISON: Chest 11/11/2017 FINDINGS: No pneumothorax. No pleural effusions. The heart remains mildly enlarged. There are near diffuse patchy bilateral airspace opacities. This favors a viral pneumonia. Advanced degenerative changes within the shoulders. IMPRESSION: Near diffuse patchy bilateral airspace opacities which favors a viral pneumonia. Pulmonary edema could also have a similar appearance in the appropriate clinical setting. ACT 112: Negative or not required by law. Electronically signed by: Gurwinder Bower M.D. 09/20/2021 3:45 PM Dictated:09/20/21 1545 Transcribed: 09/20/21 1545 Hospital Course (1) Acute hypoxemic respiratory failure: (2) Pneumonia due to COVID-19 virus: Present on admission with worsening SOB CXR showed near diffuse patchy bilateral airspace opacities which favors a viral pneumonia. Continue IV Dexamethasone 6 mg daily Not a candidate for Remdesivir due to GFR less than 30 and symptoms duration more than 10 days Continue oxygen supplement Continue Incentive spirometry and flutter valve 2 step exercise done- Pt will require 2 L NC with ambulation (3) Hypomagnesemia: Mg on admission 1.7 Continue monitor electrolytes (4) Acute hyponatremia: Sodium 136 today Continue monitor BMP Resolved (5) Acute kidney injury superimposed on CKD: Creatinine on admission 4.41 Received IVF Continue to hold Lisinopril Creatinine is trending down Continue monitor BMP (6) Type 2 diabetes mellitus: Most recent hba1c 8.3 Lantus 20 units BID and Novolog sliding scale Continue monitor BS (7) Moderate persistent asthma: Continue neb treatment (8) HTN (hypertension): BP has been fluctuated Continue Hydralazine 25 mg TID (9) Dyslipidemia: Simvastatin 20mg HS Stable Continue home meds as appropriate. DVT px on heparin subq Code Status: full code Total Time Total Time Spent Total Time Spent (In Minutes): 35 minutes Discharge Plan Discharge Items Patient Disposition: Home - Self-Care Reason For Visit: COVID, HYPOXIA, VALENTÍN Discharge Diagnosis: (1) Acute hypoxemic respiratory failure: (2) Pneumonia due to COVID-19 virus: (3) Hypomagnesemia: (4) Acute hyponatremia: (5) Acute kidney injury superimposed on CKD: (6) Type 2 diabetes mellitus: (7) Moderate persistent asthma: (8) HTN (hypertension): (9) Dyslipidemia: Activity: Resume your previous activity Non-emergency contact: Primary Care Provider Call non-emergency contact if: you have any medication questions and your symptoms worsen Follow-up/Referrals: Elgin Curran MD [Primary Care Provider] - Diet: Carb Consistent or DM2 Addtl Attending Provider Instructions: Follow up with your primary care provider within 1 week (Office will call you with the appointment) Continue oxygen supplement with 2 liter Nasal canula with ambulation Continue wearing mask and practice social distance Complete the course of the steroid seek medical attention if your symptoms or shortness of breath worsening Continue flutter valve and incentive spirometry Continue monitor your blood sugar and bring your blood sugar log at your next appointment with your provider Home Isolation COVID-19 Instructions The following information about Home Isolation is from the CDC Website: https://www.cdc.gov/coronavirus/2019-ncov/hcp/vohutmpg-sdnmsue-qhyude.html Stay home except to get medical care People who are mildly ill with COVID-19 are able to isolate at home during their illness. You should restrict activities outside your home, except for getting medical care. Do not go to work, school, or public areas. Avoid using public transportation, ride-sharing, or taxis. Separate yourself from other people and animals in your home People: As much as possible, you should stay in a specific room and away from other people in your home. Also, you should use a separate bathroom, if available. Animals: You should restrict contact with pets and other animals while you are sick with COVID-19, just like you would around other people. Although there have not been reports of pets or other animals becoming sick with COVID-19, it is still recommended that people sick with COVID-19 limit contact with animals until more information is known about the virus. When possible, have another member of your household care for your animals while you are sick. If you are sick with COVID-19, avoid contact with your pet, including petting, snuggling, being kissed or licked, and sharing food. If you must care for your pet or be around animals while you are sick, wash your hands before and after you interact with pets and wear a face mask. Call ahead before visiting your doctor If you have a medical appointment, call the healthcare provider and tell them that you have or may have COVID-19. This will help the healthcare providers office take steps to keep other people from getting infected or exposed. Wear a face mask You should wear a face mask when you are around other people (e.g., sharing a ro om or vehicle) or pets and before you enter a healthcare providers office. If you are not able to wear a face mask (for example, because it causes trouble breathing), then people who live with you should not stay in the same room with you, or they should wear a face mask if they enter your room. Cover your coughs and sneezes Cover your mouth and nose with a tissue when you cough or sneeze. Throw used tissues in a lined trash can. Immediately wash your hands with soap and water for at least 20 seconds or, if soap and water are not available, clean your hands with an alcohol-based hand security systems sales representative that contains at least 60% alcohol. Clean your hands often Wash your hands often with soap and water for at least 20 seconds, especially after blowing your nose, coughing, or sneezing; going to the bathroom; and before eating or preparing food. If soap and water are not readily available, use an alcohol-based hand security systems sales representative with at least 60% alcohol, covering all surfaces of your hands and rubbing them together until they feel dry. Soap and water are the best option if hands are visibly dirty. Avoid touching your eyes, nose, and mouth with unwashed hands. Avoid sharing personal household items You should not share dishes, drinking glasses, cups, eating utensils, towels, or bedding with other people or pets in your home. After using these items, they should be washed thoroughly with soap and water. Clean all high-touch surfaces everyday High touch surfaces include counters, tabletops, doorknobs, bathroom fixtures, toilets, phones, keyboards, tablets, and bedside tables. Also, clean any surfaces that may have blood, stool, or body fluids on them. Use a household cleaning spray or wipe, according to the label instructions. Labels contain instructions for safe and effective use of the cleaning product including precautions you should take when applying the product, such as wearing gloves and making sure you have good ventilation during use of the product. Monitor your symptoms Seek prompt medical attention if your illness is worsening (e.g., difficulty breathing).Beforeseeking care, call your healthcare provider and tell them that you have, or are being evaluated for, COVID-19. Put on a face mask before you enter the facility. These steps will help the healthcare providers office to keep other people in the office or waiting room from getting infected or exposed. Ask your healthcare provider to call the local or state health department. Persons who are placed under active monitoring or facilitated self- monitoring should follow instructions provided by their local health department or occupational health professionals, as appropriate. When working with your local health department check their available hours. If you have a medical emergency and need to call 911, notify the dispatch personnel that you have, or are being evaluated for COVID-19. If possible, put on a face mask before emergency medical services arrive. Discontinuing home isolation Patients with confirmed COVID-19 should remain under home isolation precautions until the risk of secondary transmission to others is thought to be low. The decision to discontinue home isolation precautions should be made on a luz maria e-by-case basis, in consultation with healthcare providers and state and local health departments. Coronavirus disease 2019 (COVID-19) is a virus that causes a respiratory illness. It is caused by a coronavirus called 2019 novel coronavirus (2019- nCoV). There are many types of coronavirus. Coronaviruses are a very common cause of bronchitis. They may sometimes cause lung infection(pneumonia). Symptoms can range from mild to severe respiratory illness. These viruses are also foundin some animals. COVID-19 was first found in people in [facility], in late 2019. In 2020, several cases of COVID-19 have been confirmed in the [place] Public health officials are working to find the source. How the virus spreads is not yet fully known. It may be spread through droplets of fluid that a person coughs or sneezes into the air. It may be spread if you touch a surface with virus on it, such as a handle or object, and then touch your mouth. What are the symptoms of COVID-19? Some people have no symptoms or mild symptoms. Symptoms may appear 2 to 14 days after contact with the virus. Symptoms can include: Fever Coughing Trouble breathing What are possible complications from COVID-19? In many cases, this virus can cause infection (pneumonia) in both lungs. In some cases, this can cause . How is COVID-19 diagnosed? Your healthcare provider will ask about your symptoms. He or she will also ask about your recent travel and contact with sick people. Testing for the virus is only done through the CDC. If yourhealthcare provider thinks you may have COVID- 19, he or she will work with your local health department and the CDC on testing. Follow all instructions from your healthcare provider. COVID-19 is diagnosed by: Nasal and throat swab. A cotton-tipped swab is wiped inside your nose or throat. This is done to check for viruses in your nasal mucus. Sputum culture. A small sample of mucus coughed from your lungs (sputum) is collected if you have a cough. It is checked for the virus. How is COVID-19 treated? There is currently no medicine to treat the virus. Treatment is done to help your body while it fights the virus. This is known as supportive care. Supportive care may include: Pain medicine. These include acetaminophen and ibuprofen. They are used to help ease pain and reduce fever. Bed rest. This helps your body fight the illness. For severe illness, you may need to stay in the hospital. Care during severe illness may include: IV (intravenous) fluids.These are given through a vein to help keep your body hydrated. Oxygen. Supplemental oxygen or ventilation with a breathing machine (ventilator) may be given. This is done to keep enough oxygen in your body. Are you at risk for COVID-19? If youve been to a place where people have been sick with this virus, you are at risk for infection. You are at risk if you: Recently traveled to an affected area Had contact with a sick person who recently traveled to this area Had contact with a person who was diagnosed with COVID-19 How can COVID-19 be prevented? There is no vaccine yet. The best prevention is to not have contact with the virus. The CDC advises that people should not travel to areas where there are COVID-19 outbreaks right now for any reason that is not urgent. To help prevent spreading the infection, wash your hands often, or use an alcohol-basedhand security systems sales representative. If you are in an area with COVID-19: Wash your hands often. Or use an alcohol-based hand security systems sales representative often. Only touch your eyes, nose, or mouth with clean hands. Dont have contact with people who are sick. Follow local instructions about being in public. For example, you may be told to not use public transport for a period of time. Stay away from markets that have live or animals. Wash your hands after touching any animals. Don't touch animals that may be sick. Dont share eating or drinking tools with sick people. Dont kiss someone who is sick. Clean surfaces often with disinfectant. If you were in an area with COVID-19 in the last 14 days: Call your healthcare provider. He or she can talk with local health staff to see what action may be needed. Follow all instructions from your provider. Take your temperature every morning and evening for at least 14 days. This is to check for fever. Keep a record of the readings. Keep watch for symptoms of the virus. Tell your provider right away if you have symptoms. If you were in an area with COVID-19 and have a fever or other symptoms: Dont panic. Keep in mind that other illnesses can cause similar symptoms. Stay away from work, school, and public places. Limit physical contact with family members. Don't kiss anyone or share eating or drinking utensils. Clean surfaces you touch with disinfectant. This is to help prevent the virus from spreading. Call your healthcare provider. Explain that you have been exposed to COVID-19 and have symptoms. Do this before going to any hospital. Wait for instructions. Keep in mind that healthcare staff may wear protective equipment such as masks, gowns, gloves, and eye protection. You may be put in a separate room. This is to prevent the possible virus from spreading. Tell the healthcare staff about recent travel. This includes local travel on public transport. Staff may need to find other people you have been in contact with. Follow all instructions the healthcare staff give you. If you have been diagnosed with COVID-19 Follow all instructions from your healthcare provider. Dont leave your home, except to get medical care. Call your healthcare providers office before going. They can prepare and give you instructions. This will help prevent the virus from spreading. Dont go to work, school, or public areas. Dont use public transport or taxis. Stay away from other people in your home. Have them wear face masks around you. Dont share household items or food. Wear a face mask if you can. This includes at home or in a medical facility. Cover your face with a tissue when you cough or sneeze. Throw the tissue away. Wash your hands. Wash your hands often. Caregivers should: Follow all instructions from healthcare staff. Wear a face mask and protective clothing as advised. Wash hands often. Keep track of the sick persons symptoms. Clean surfaces, fabrics, and laundry thoroughly. Keep other people away from the sick person. When to call your healthcare provider Call your healthcare provider: If youve recently traveled and have symptoms If you have been diagnosed with COVID-19 and your symptoms are worse To learn more To find out more about COVID-19, visit the CDC website at www.cdc.gov/coronavirus/2019-ncov/index.html. 5843-1047 [employer]. [address] [place] [address]. All rights reserved. This information is not intended as a substitute for professional medical care. Always follow your healthcare professional's instructions. This information has been adapted from [employer] Pending Studies at Discharge: No Stand-Alone Forms: [employer], Smoking Cessation Medications and DC Order Prescriptions: New guaifenesin 200 mg tablet 200 mg PO TID PRN (Reason: congestion) Qty: 21 RF: 0 prednisone 20 mg tablet 20 mg PO UD Qty: 10 RF: 0 Continued citalopram 40 mg tablet 40 mg PO DAILY RF: 0 doxepin 25 mg capsule 25 mg PO DAILY RF: 0 trazodone 100 mg tablet 100 mg PO HS RF: 0 montelukast 10 mg tablet 10 mg PO HS RF: 0 simvastatin 20 mg tablet 20 mg PO HS RF: 0 lisinopril 10 mg Tablet 10 mg PO DAILY RF: 0 insulin aspart U-100 [Novolog Flexpen U-100 Insulin] 100 unit/mL (3 mL) insulin pen 4 unit SUBCUT UD RF: 0 levalbuterol tartrate 45 mcg/actuation HFA aerosol inhaler 2 puff INHALATION BID RF: 0 Lantus Solostar U-100 Insulin 100 unit/mL (3 mL) insulin pen 42 unit SUBCUT HS RF: 0 Victoza 2-Anup 0.6 mg/0.1 mL (18 mg/3 mL) pen injector 1.2 mg SUBCUT QAM RF: 0 budesonide-formoterol [Symbicort] 160-4.5 mcg/actuation HFA aerosol inhaler 2 puff INHALATION BID RF: 0 multivitamin Tablet 1 tab PO DAILY RF: 0 albuterol sulfate 2.5 mg /3 mL (0.083 %) Solution For Nebulization 2.5 mg INHALATION Q6 PRN (Reason: Wheezing) RF: 0 hydralazine 25 mg Tablet 25 mg PO TID RF: 0 aspirin [Aspirin Low Dose] 81 mg Tablet,Delayed Release (Dr/Ec) 81 mg PO DAILY RF: 0 furosemide 20 mg Tablet 20 mg PO BID PRN (Reason: fluid accumulation/weight gain) RF: 0 cinnamon bark [Cinnamon] 500 mg Capsule 500 mg PO DAILY RF: 0 cholecalciferol (vitamin D3) [Vitamin D3] 25 mcg (1,000 unit) Tablet 25 mcg PO DAILY RF: 0 melatonin 10 mg Tablet 10 mg PO HS RF: 0 tramadol 50 mg tablet 50 mg PO Q6H PRN (Reason: Pain) RF: 0 Discharge Orders: Discharge Order (Routine); Ordered 09/24/21 Ordered By: Tashia Feliciano Admission Data Admit Date/Time: 09/20/21 17:22 Attending Provider: Tashia Feliciano Admit Provider: Tashia Feliciano Primary Care Provider: Elgin Curran Other Providers: Tashia Feliciano Other Interventions: Discharge Summary Assessment (RN) Last Done: 09/24/21 17:51
[2021-09-24] MEDS ORDERED: INSULIN GLARGINE SOLOSTAR 100 UNITS/ML 3 ML PEN SC SCH (21:00)
[2021-09-25] MEDS ORDERED: INSULIN GLARGINE SOLOSTAR 100 UNITS/ML 3 ML PEN SC SCH (09:00)
== END 2021-09-24 18:27 | disposition home or self-care (01) | DRG 177 ==
LOC: ED 15:04 → EDINP 17:22 → 2S 09-21 14:09
DX: Z88.0 Allergy status to penicillin; I12.9 Hypertensive chronic kidney disease with stage 1 through stage 4 chronic kidney disease, or unspecified chronic kidney disease; N17.9 Acute kidney failure, unspecified; Z79.4 Long term (current) use of insulin; E83.42 Hypomagnesemia; E83.51 Hypocalcemia; Z83.3 Family history of diabetes mellitus; E87.1 Hypo-osmolality and hyponatremia; U07.1 COVID-19; N18.4 Chronic kidney disease, stage 4 (severe); J45.40 Moderate persistent asthma, uncomplicated; Z88.8 Allergy status to other drugs, medicaments and biological substances; E78.5 Hyperlipidemia, unspecified; J96.01 Acute respiratory failure with hypoxia; Z79.82 Long term (current) use of aspirin; I44.0 Atrioventricular block, first degree; J12.82 Pneumonia due to coronavirus disease 2019